=== PATIENT | female | born 1995 | race Caucasian/White ===

== ENCOUNTER 2021-12-02 00:56 | Day surgery (SDC) | payer BC, SELFPAY ==
[2021-11-18 15:49] VITALS: BMI 22.3
[2021-12-02 10:25] VITALS: BP 119/68; PULSE 70; RESP 18; TEMP 36.6; O2SAT 100
[2021-12-02] MEDS: LACTATED RINGERS 1,000 ML 150 ML IV CONT (10:37)
--- NOTE | 2021-12-02 10:45 | P.PNAN_ITS ---
Anes - Initial Pre Proc Eval Procedure: Operation Date: 12/02/21 11:30 Proposed Procedures p Esophagogastroduodenoscopy - Michael Wu MD Date/Time: 12/02/21 10:45 Surgeon: Michael Wu MD Pre Op Diagnosis: N & V, Epigastric pain Patient Data Age: 26 Gender: F Height: 1.63 m Weight: 60.6 kg Last Vital Signs Temp 36.6 C 12/02/21 10:25 Pulse 70 12/02/21 10:25 Resp 18 12/02/21 10:25 BP 119/68 12/02/21 10:25 Pulse Ox 100 12/02/21 10:25 O2 Del Method Room Air 12/02/21 10:25 Allergies Allergy/AdvReac Type Severity Reaction Status Date / Time No Known Allergies Allergy Verified 12/02/21 10:24 Home Medications Medication Instructions Recorded Confirmed Type hydroxyzine HCl 10 mg tablet 10 mg PO BID PRN anxiety #20 tabs 05/20/21 11/18/21 Rx bupropion HCl 150 mg 24 hr tablet, 150 mg PO QAM #30 tabs 10/16/21 11/18/21 Rx extended release (Wellbutrin XL) ondansetron 4 mg disintegrating 4 mg PO Q8H PRN nausea and 10/23/21 11/18/21 Rx tablet vomiting #20 tabs multivitamin with iron (Daily 1 tablet PO DAILY 10/29/21 11/18/21 History Vitamin with Iron tablet) omeprazole 40 mg capsule,delayed 40 mg PO DAILY PRN Indigestion 11/18/21 2 History release Patient hx anesthesia problems: none Family hx anesthesia problems: none Results Review: All pre-operative results and documents have been reviewed as part of the pre- operative evaluation. PENDING SALE TO [facility] Past Medical History Medical History (Updated 10/29/21 @ 14:22 by Francisca Tidwell APRN) BMI 22.0-22.9, adult BMI 23.0-23.9, adult Epigastric pressure Surgical History Surgical History (Updated 12/02/21 @ 10:46 by Amador Earl MD) S/P wisdom tooth extraction Family History Family History Father Tobacco abuse Mother GERD (gastroesophageal reflux disease) Sibling Anemia Social History Social History Smoking status: Current every day smoker Tobacco type: e-cigarettes/vaping Second hand tobacco smoke exposure: Yes Alcohol intake: former Substance use: current Substance use type: marijuana Last use: weekly Living arrangements: with family 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 Informed Consent: The patient's anesthetic plan and its attendant risks and benefits were discussed with the patient/family/POA. Questions were solicited and answers provided to the satisfaction of the patient/family/POA.
--- NOTE | 2021-12-02 10:57 | PM.HPGS ---
History of Present Illness History of Present Illness Consent: Risks, benefits, and alternatives have been discussed and questions answered. Patient agrees to proceed with procedure. Chief complaint: N & V, Epigastric pain Narrative: Zoë Membreno is a 26 year old female with cyclic vomiting, using marijuana, never had egd Review of Systems Constitutional: Constitutional: Denies headache(s) and Denies weakness Eyes: Eyes: Denies blurry vision ENT: Reports Normal hearing present, Denies headache(s) and Denies neck pain Cardiovascular: Cardiovascular: Denies chest pain and Denies dyspnea Respiratory: Respiratory: Denies dyspnea Gastrointestinal: Gastrointestinal: Reports no additional gastrointestinal complaints Genitourinary: Genitourinary: Denies dysuria Musculoskeletal: Musculoskeletal: Denies neck pain Integumentary/Breasts: Skin/Breast: Denies dry skin Neurologic: Reports Normal hearing present, Denies headache(s) and Denies weakness Psychiatric: Psychiatric: Denies anxiety Endocrine: Endocrine: Denies change in body appearance Hematologic/Lymphatic: Hematologic/Lymphatic: Denies easy bleeding Allergic/Immunologic: Allergic/Immunologic: Denies urticaria PMFSH Past Medical History Medical History (Updated 12/02/21 @ 10:58 by Michael Wu MD) BMI 22.0-22.9, adult BMI 23.0-23.9, adult Epigastric pressure Marijuana smoker Surgical History Surgical History (Updated 12/02/21 @ 10:46 by Amador Earl MD) S/P wisdom tooth extraction Family History Family History Father Tobacco abuse Mother GERD (gastroesophageal reflux disease) Sibling Anemia Social History Social History Smoking status: Current every day smoker Tobacco type: e-cigarettes/vaping Second hand tobacco smoke exposure: Yes Alcohol intake: former Substance use: current Substance use type: marijuana Last use: weekly Living arrangements: with family 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 Gender identity (if verbalized by the patient): Female Spiritual care concerns: No Meds Home Medications and Allergies Home Medications Medication Instructions Recorded Confirmed Type hydroxyzine HCl 10 mg tablet 10 mg PO BID PRN anxiety #20 tabs 05/20/21 11/18/21 Rx bupropion HCl 150 mg 24 hr tablet, 150 mg PO QAM #30 tabs 10/16/21 11/18/21 Rx extended release (Wellbutrin XL) ondansetron 4 mg disintegrating 4 mg PO Q8H PRN nausea and 10/23/21 11/18/21 Rx tablet vomiting #20 tabs multivitamin with iron (Daily 1 tablet PO DAILY 10/29/21 11/18/21 History Vitamin with Iron tablet) omeprazole 40 mg capsule,delayed 40 mg PO DAILY PRN Indigestion 11/18/21 11/18/21 History release Allergies Allergy/AdvReac Type Severity Reaction Status Date / Time No Known Allergies Allergy Verified 12/02/21 10:24 Vital Signs Vital Signs - 24 hr 12/02/21 10:25 Temperature 97.8 F Pulse Rate 70 Respiratory Rate 18 Blood Pressure 119/68 Pulse Oximetry 100 Oxygen Delivery Room Air Exam Const: General: comfortable and no acute distress HENMT: General nose exam: Normal nares present Eyes: General: appearance normal, both eyes and all related structures Neck: Neck: no JVD Resp: Auscultation: clear to auscultation bilaterally Cardio: Rate: regular rate Rhythm: regular rhythm GI: Inspection: non-distended GI Palp: Yes Soft to palpation Skin: General skin exam: normal color Neuro: General: gait normal Speech: normal speech Extrem: General: normal to inspection Psych: Mental Status: mental status grossly normal Assessment and Plan Assessment and plan (1) Nausea and vomiting: Code(s): R11.2 - Nausea with vomiting, unspecified Status: Acute Assessment and Plan: egd with bx probably related to marijuana (2) Naye
[2021-12-02 11:14] VITALS: BP 117/71; PULSE 83; RESP 20; O2SAT 100
[2021-12-02 11:24] VITALS: BP 100/60; PULSE 73; RESP 18; O2SAT 100
[2021-12-02 11:34] VITALS: BP 103/64; PULSE 75; RESP 16; O2SAT 100
== END 2021-12-02 11:48 | disposition home or self-care (01) ==
PROVIDERS: PCP Family Medicine; Visit Provider Internal Medicine Gastroenterology
PROC: 0DJ08ZZ Inspection of Upper Intestinal Tract, Via Natural or Artificial Opening Endoscopic (ICD-10-PCS; CPT 43235; principal; 2021-12-02 11:30)
DX: R11.2 Nausea with vomiting, unspecified (principal); F12.90 Cannabis use, unspecified, uncomplicated; R10.13 Epigastric pain; F17.210 Nicotine dependence, cigarettes, uncomplicated
CPT/HCPCS: 43239; 88305; J2704; J7120

== ENCOUNTER 2024-07-31 19:34 | Emergency (ER) | payer BC, SELFPAY ==
--- OUTSIDE RECORDS SUMMARY | 2024-07-31 19:36 | XMS_ITS | Clinical Summary ---
Author Organization [facility] Address [address] [place] [address] Care Team Providers Care Unishear Operator Name Role Phone Hunter Whelan MD Primary Care Provider [phone] Source Comments [facility],non-owned Affiliates and Associated Physician Practices is amultiple site organization consisting of ambulatory clinics and hospital sitesin [place], [place], [place] and [place]. This disclosure is being madepursuant to the Care Everywhere program and may not contain all information available regarding this patient. Last updated 17.[facility] Allergies No known active allergies Social History Tobacco Use Types Packs/Day Years Used Date Smoking Tobacco: Never Assessed Comments No Sex and Gender Information Value Date Recorded Sex Assigned at Not on file Legal Sex Female 11:27 AM CDT Gender Identity Not on file Sexual Orientation Not on file Plan of Treatment Health Maintenance Due Date Last Done Comments PAP SMEAR 1997 HIV SCREENING 01/21/2012 HEPATITIS C SCREENING 01/16/2015 DTAP/TDAP/TD VACCINES (1 - Tdap) 01/21/2016 HEPATITIS B VACCINE (1 of 3 - 19+ 3-dose series) 01/21/2016 COVID-19 VACCINE ( - 2023-2 5 season) 2023 DEPRESSION SCREENING 03/29/2024 INFLUENZA VACCINE (Season Ended) 2024 ZOSTER VACCINE (1 of 2) 2047 HIB VACCINE Aged Out No longer eligi ble based on patient's age to complete this topic HPV VACCINE Aged Out No longer eligi ble based on patient's age to complete this topic MENINGOCOCCAL (Group B) VACC INE SHARED DECISION-MAKING Aged Out No longer eligibl e based on patient's age to complete this topic MENINGOCOCCAL GROUPS A/C/Y/W VACCINE Aged Out No longer eligible b ased on patient's age to complete this topic PNEUMOCOCCAL VACCINE Aged Out No long er eligible based on patient's age to complete this topic Insurance ANTH Care Teams Unishear Operator Relationship Specialty Start Date End Date Hunter Whelan MD [address] [place] [address] PCP - General 12/04/21
[2024-07-31 19:37] VITALS: BP 142/94; PULSE 101; RESP 18; TEMP 36.3; O2SAT 99
--- OUTSIDE RECORDS SUMMARY | 2024-07-31 19:37 | XMS_ITS | Data Portability ---
Author Organization [address] [employer] , [facility] Address [address] [place] [address] Care Team Providers Care Household Chores Name Role Phone [facility] Patient Experience Coordinator Assessment No assessment recorded. Plan of Treatment Reminders Order Date Submit Date Provider Last Modified By Organization Details Last Modified Time Details Appointments None record ed. Lab pregna ncy test, urine 2022 023 [facility], [address] [place], [address], 3 15:50:50 pap, LB 2022 023 [facility], [address] [place], [address], 3 17:27:40 HPV E6+E7 mRNA, qualit ative PCR, cervix 2022 023 [facility], [address] [place] [address], [address], 3 15:46:48 CBC w/ auto diff 2022 023 [facility], [address] [place], [address], 3 10:30:01 CMP, serum or plasma 2022 023 [facility], [address] [place], [address], 3 10:30:00 uric acid, serum or plasma 2022 023 [facility], [address] [facility], [place], [address], 3 10:30:00 Referral None record ed. Procedures None record ed. Surgeries None record ed. Imaging US, transv aginal 2022 023 [email or web address] Not available 17:21:16 Medication Orders ParaGa rd T 380A 380 square mm intrau terine device 2022 023 [email or web address] Not available 11:36:50 Patient TargetsNo targets recorded. Patient Instructions Encounter Date Encounter Id Patient Instructions Last Modified By Organization Details Last Modified Time 10/22/2022 [id number] blood pressure check* [email or web address] Not available 10/26/2022 14:05:26 11/12/2022 [id number] edinburgh depression scale* kbritsch Not available 11/12/2022 16:39:51 12/14/2022 [id number] edinburgh depression scale* [email or web address] Not available 12/14/2022 15:43:50 Care at Home With Your Baby: Care Instructions Not available 12/14/2022 15:31:28 control after counseling Not available 12/14/2022 15:31:29 03/19/2023 [id number] intrauterine device (IUD) insertion: care instructions [email or web address] Not available 03/19/2023 15:50:48 Reason for Referral None Reported. Results Created Date Observation Date Name Description Value Unit Range Abnormal Flag Note LastModifiedBy Organization Detail LastModifiedTime 09/25/1909/26/2022 STREP TOCOC CUS, GROUP B CULTU RE streptococcu s, group B culture SEE NOTE abnormal STREP TOCOC CUS, GROUP B CULTU RE Micro Numbe r: [id number] Test Statu s: Final Speci men Sourc e: Vagin al/an orect al Speci men Quali ty: Adequ ate Resul t: Group B Strep tococ cus isola radha Beta- hemol ytic strep tococ ci are predi ctabl y susce ptibl e to Penic illin and other beta- lacta ms. Susce ptibi lity testi ng not routi ernie perfo rmed. Pleas e conta ct the labor atory withi n 3 days if susce ptibi lity testi ng is enoc ed. Note per CDC guide lines optim al recov abby is achie prema by swabb ing both the lower vagin a and rectu m (thro ugh the anal sphin cter) . Not Available [address] [place], [address], 09/26/2022 10:02:31 10/23/19 23 10/23/2022 URIC ACID uric acid 5.9 mg/dL 2.5-7. 0 normal Thera peuti c targe t for gout patie nts: <6.0 mg/dL Not Available [address] [place], [address], 10/23/2022 10:30:00 10/23/19 23 10/23/2022 COMPR EHENS KHADAR METAB OLIC PANEL glucose 85 mg/dL 65-99 normal Fasti ng refer ence inter anjelica Not Available [address] [place], [address], 10/23/2022 10:30:00 10/23/19 23 10/23/2022 COMPR EHENS KHADAR METAB OLIC PANEL urea nitrogen (BUN) 14 mg/dL 7-25 normal Not Available [address], [address], 10/23/2022 10:30:00 10/23/19 23 10/23/2022 COMPR EHENS KHADAR METAB OLIC PANEL creatinine 0.55 mg/dL 0.50-0 .96 normal Not Available [facility] [address], [address], 10/23/2022 10:30:00 10/23/19 23 10/23/2022 COMPR EHENS KHADAR METAB OLIC PANEL eGFR 130 mL/mi n/1.7 3m2 > or = 60 normal The eGFR is based on the CKD-E PI 2020 equat ion. To calcu late the new eGFR from a previ ous Creat inine or Cysta tin C resul t, go to https :[email or web address] [email or web address].o ginger/pr ofess ional s/ kdoqi /gfr% 5Fcal culat or Not Available [address] [address] [place], [address], 10/23/2022 10:30:00 10/23/19 23 10/23/2022 COMPR EHENS KHADAR METAB OLIC PANEL BUN/creatini ne ratio NOT APPLIC ABLE (calc ) 6-22 Not Available [address], [address], 10/23/2022 10:30:00 10/23/19 23 10/23/2022 COMPR EHENS KHADAR METAB OLIC PANEL sodium 139 mmol/ L 135-14 6 normal Not Available [address] [place], [address], 10/23/2022 10:30:00 10/23/19 23 10/23/2022 COMPR EHENS KHADAR METAB OLIC PANEL potassium 4.2 mmol/ L 3.5-5. 3 normal Not Available [address], [address], 10/23/2022 10:30:00 10/23/19 23 10/23/2022 COMPR EHENS KHADAR METAB OLIC PANEL chloride 104 mmol/ L 98-110 normal Not Available [facility] [address], [address], 10/23/2022 10:30:00 10/23/19 23 10/23/2022 COMPR EHENS KHADAR METAB OLIC PANEL carbon dioxide 23 mmol/ L 20-32 normal Not Available [facility] [address] [address] [place], [address], 10/23/2022 10:30:00 10/23/19 23 10/23/2022 COMPR EHENS KHADAR METAB OLIC PANEL calcium 9.9 mg/dL 8.6-10 .2 normal Not Available [address], [address], 10/23/2022 10:30:00 10/23/19 23 10/23/2022 COMPR EHENS KHADAR METAB OLIC PANEL protein, total 6.9 g/dL 6.1-8. 1 normal Not Available [address], [address], 10/23/2022 10:30:00 10/23/19 23 10/23/2022 COMPR EHENS KHADAR METAB OLIC PANEL albumin 4.2 g/dL 3.6-5. 1 normal Not Available [address], [address], 10/23/2022 10:30:00 10/23/19 23 10/23/2022 COMPR EHENS KHADAR METAB OLIC PANEL globulin 2.7 g/dL_ (calc ) 1.9-3. 7 normal Not Available [address], [address], 10/23/2022 10:30:00 10/23/19 23 10/23/2022 COMPR EHENS KHADAR METAB OLIC PANEL albumin/glob ulin ratio 1.6 (calc ) 1.0-2. 5 normal Not Available [address], [address], 10/23/2022 10:30:00 10/23/19 23 10/23/2022 COMPR EHENS KHADAR METAB OLIC PANEL bilirubin, total 0.4 mg/dL 0.2-1. 2 normal Not Available [address], [address], 10/23/2022 10:30:00 10/23/19 23 10/23/2022 COMPR EHENS KHADAR METAB OLIC PANEL alkaline phosphatase 110 U/L 31-125 normal Not Available [address], [address], 10/23/2022 10:30:00 10/23/19 23 10/23/2022 COMPR EHENS KHADAR METAB OLIC PANEL AST 26 U/L 10-30 normal Not Available [address], [address], 10/23/2022 10:30:00 10/23/19 23 10/23/2022 COMPR EHENS KHADAR METAB OLIC PANEL ALT 40 U/L 6-29 high Not Available [address], [address], 10/23/2022 10:30:00 10/23/19 23 10/23/2022 CBC (INCL UDES DIFF/ PLT) white blood cell count 6.2 thous and/u L 3.8-10 .8 normal Not Available [address], [address], 10/23/2022 10:30:01 10/23/19 23 10/23/2022 CBC (INCL UDES DIFF/ PLT) red blood cell count 4.88 noreen on/uL 3.80-5 .10 normal Not Available [address], [address], 10/23/2022 10:30:01 10/23/19 23 10/23/2022 CBC (INCL UDES DIFF/ PLT) hemoglobin 13.7 g/dL 11.7-1 5.5 normal Not Available [address], [address], 10/23/2022 10:30:01 10/23/19 23 10/23/2022 CBC (INCL UDES DIFF/ PLT) hematocrit 42.4 % 35.0-4 5.0 normal Not Available [address], [address], 10/23/2022 10:30:01 10/23/19 23 10/23/2022 CBC (INCL UDES DIFF/ PLT) MCV 86.9 fL 80.0-1 00.0 normal Not Available [address], [address], 10/23/2022 10:30:01 10/23/19 23 10/23/2022 CBC (INCL UDES DIFF/ PLT) MCH 28.1 pg 27.0-3 3.0 normal Not Available [facility] [address], [address], 10/23/2022 10:30:01 10/23/19 23 10/23/2022 CBC (INCL UDES DIFF/ PLT) MCHC 32.3 g/dL 32.0-3 6.0 normal Not Available [address], [address], 10/23/2022 10:30:01 10/23/19 23 10/23/2022 CBC (INCL UDES DIFF/ PLT) RDW 15.7 % 11.0-1 5.0 high Not Available [address], [address], 10/23/2022 10:30:01 10/23/19 23 10/23/2022 CBC (INCL UDES DIFF/ PLT) platelet count 275 thous and/u L 140-40 0 normal Not Available [address], [address], 10/23/2022 10:30:01 10/23/19 23 10/23/2022 CBC (INCL UDES DIFF/ PLT) MPV 10.0 fL 7.5-12 .5 normal Not Available [address], [address], 10/23/2022 10:30:01 10/23/19 23 10/23/2022 CBC (INCL UDES DIFF/ PLT) absolute neutrophils 3832 cells /uL 1500-7 800 normal Not Available [address], [address], 10/23/2022 10:30:01 10/23/19 23 10/23/2022 CBC (INCL UDES DIFF/ PLT) absolute lymphocytes 1432 cells /uL 850-39 00 normal Not Available [address], [address], 10/23/2022 10:30:01 10/23/19 23 10/23/2022 CBC (INCL UDES DIFF/ PLT) absolute monocytes 484 cells /uL 200-95 0 normal Not Available [address], [address], 10/23/2022 10:30:01 10/23/19 23 10/23/2022 CBC (INCL UDES DIFF/ PLT) absolute eosinophils 403 cells /uL 15-500 normal Not Available [address], [address], 10/23/2022 10:30:01 10/23/19 23 10/23/2022 CBC (INCL UDES DIFF/ PLT) absolute basophils 50 cells /uL 0-200 normal Not Available [address], [address], 10/23/2022 10:30:01 10/23/19 23 10/23/2022 CBC (INCL UDES DIFF/ PLT) neutrophils 61.8 % normal Not Available [address], [address], 10/23/2022 10:30:01 10/23/19 23 10/23/2022 CBC (INCL UDES DIFF/ PLT) lymphocytes 23.1 % normal Not Available [address], [address], 10/23/2022 10:30:01 10/23/19 23 10/23/2022 CBC (INCL UDES DIFF/ PLT) monocytes 7.8 % normal Not Available [address], [address], 10/23/2022 10:30:01 10/23/19 23 10/23/2022 CBC (INCL UDES DIFF/ PLT) eosinophils 6.5 % normal Not Available [address], [address], 10/23/2022 10:30:01 10/23/19 23 10/23/2022 CBC (INCL UDES DIFF/ PLT) basophils 0.8 % normal Not Available [address], [address], 10/23/2022 10:30:01 12/15/19 23 12/15/2022 HPV HIGH RISK HPV high risk Negati ve negati ve normal The HPV High Risk assay is inten ded for use as co-te sting with cytol ogy and not as a subst itute for regul ar cervi aparna cytol ogy scree [place]. This assay is not inten ded for use as a scree mansoor devic e for women under age 30 with samantha l cervi aparna cytol ogy. Not Available [address], [address], 12/15/2022 15:46:48 12/15/19 23 12/16/2022 THINP REP TIS PAP clinical information: normal None given Not Available [address], [address], 12/16/2022 17:27:40 12/15/19 23 12/16/2022 THINP REP TIS PAP LMP: normal NONE GIVEN Not Available [address], [address], 12/16/2022 17:27:40 12/15/19 23 12/16/2022 THINP REP TIS PAP prev. Pap: normal NONE GIVEN Not Available [address], [place], [address], 12/16/2022 17:27:40 12/15/19 23 12/16/2022 THINP REP TIS PAP prev. BX: normal NONE GIVEN Not Available [address], [place], [address], 12/16/2022 17:27:40 12/15/19 23 12/16/2022 THINP REP TIS PAP source: normal Cervi x Not Available [address], [place], [address], 12/16/2022 17:27:40 12/15/1912/16/2022 THINP REP TIS PAP statement of adequacy: Speci men proce ssed and exami teja, but unsat isfac tory for evalu ation due to an insuf ficie nt numbe r of squam ous cells . Not Available [address], [place], [address], 12/16/2022 17:27:40 12/15/1912/16/2022 THINP REP TIS PAP interpretati on/result: Cytol ogy Resul ts: Unabl e to provi de inter preta tion due to unsat isfac tory speci men adequ acy. Not Available [address], [place], [address], 12/16/2022 17:27:40 12/15/19 23 12/16/2022 THINP REP TIS PAP comment: normal This Pap test has been evalu ated with compu ter ryan radha techn ology . Micro scopi c featu res sugge stive of lubri cant. Lubri cant kat es may inter fere with slide prepa ratio n; their use is not recom susanna d. Not Available [address] , [place], [address], 12/16/2022 17:27:40 12/15/19 23 12/16/2022 THINP REP TIS PAP cytotechnolo gist: normal WILLARD, CT( CP) CT [place] locat ion: [address] [place] [address] Not Available [facility] [address] [place], [address], 12/16/2022 17:27:40 12/15/19 23 12/16/2022 THINP REP TIS PAP review cytotechnolo gist: normal ABC, CT( CP) CT scree [place] locat ion: [facility] [address] [place] [address] Not Available [facility] [address] [place], [address], 12/16/2022 17:27:40 12/15/19 23 12/16/2022 THINP REP TIS PAP comment EXPLA NATOR Y NOTE: The Pap is a scree mansoor test for cervi aparna cance r. It is not a diagn ostic test and is subje ct to false negat khadar and false posit khadar resul ts. It is most relia ble when a satis facto ry sampl e, regul sugey obtai teja, is submi tted with relev ant clini aparna findi ngs and histo ry, and when the Pap resul t is evalu ated along with histo elida and curre nt clini aparna infor matio n. Not Available [facility] [address], [place], [address], 12/16/2022 17:27:40 03/19/20 23 03/19/2023 pregn liv test, urine HCG negati ve Not Available [facility] [address] [facility] [place], [address], 03/18/2023 17:29:12 03/19/20 23 03/19/2023 US, trans vagin al No observ ation record ed. [email or web address] [facility] [address], [place], [address], 03/22/2023 16:38:09 Result Notes None recorded. Problems Name Problem SNOMED Code Status Onset Date Resolution Date Notes Provider Name and Address Organization Details Recorded Time Gestatio n period, 24 weeks [id number] Completed 201810/15/2019 24 weeks gestatio n of pregnanc y; Progress : Stable Added By: Kelton Benitez Add to Current Problems : NO ProblemS tatus: Resolve Not Available [facility] 2 22:08:27 Gestatio n period, 13 weeks [id number] Completed 201810/15/2019 13 weeks gestatio n of pregnanc y; Progress : Stable Added By: Kirti Patterson Add to Current Problems : NO ProblemS tatus: Resolve Not Available [facility] 2 21:06:39 Gestatio n period, 17 weeks [id number] Completed 201810/15/2019 17 weeks gestatio n of pregnanc y; Progress : Stable Added By: Cara Corado Add to Current Problems : NO ProblemS tatus: Resolve Not Available [facility] 2 21:06:38 Uterine size for dates discrepa ncy Completed 201910/15/2019 Uterine size-lou e discrepa ncy, third trimeste r; Progress : Stable Added By: Charlene Griffin Add to Current Problems : NO ProblemS tatus: Resolve Not Available [facility] 2 22:08:27 Gestatio n period, 9 weeks [id number] Completed 201810/15/2019 9 weeks gestatio n of pregnanc y; Progress : Stable Added By: Kelton Benitez Add to Current Problems : NO ProblemS tatus: Resolve Not Available [facility] 2 21:06:39 Uterine size for dates discrepa ncy Completed 201810/15/2019 Uterine size-lou e discrepa ncy, second trimeste r; Progress : Stable Added By: Jessica Mloina Add to Current Problems : NO ProblemS tatus: Resolve Not Available [facility] 2 21:06:38 Procedur e related to breastfe eding Completed 201910/15/2019 Encounte r for care and examinat ion of lactatin g mother; Progress : Stable Added By: Sondra Orellana Add to Current Problems : NO ProblemS tatus: Resolve Not Available [facility] 2 21:06:40 Maternal hyperten chuck [id number] Completed 201910/15/2019 Unspecif ied maternal hyperten chuck, complica ting the puerperi um; Progress : Stable Added By: So Lai Add to Current Problems : NO ProblemS tatus: Resolve Not Available [facility] 2 21:06:38 Normal pregnanc y in multigra jared [id number] 4106 Completed 201910/15/2019 Encounte r for supervis ion of other normal pregnanc y, first trimeste r; Progress : Stable Added By: Kirti Patterson Add to Current Problems : NO ProblemS tatus: Resolve; Start Date : 12/15/19 Encou nter for supervis ion of other normal pregnanc y, second trimeste r; Progress : Stable Added By: Kelton Benitez Add to Current Problems : NO ProblemS tatus: Resolve; Start Date : 02/04/20 Encou nter for supervis ion of other normal pregnanc y, third trimeste r; Progress : Stable Added By: So Lai Add to Current Problems : NO ProblemS tatus: Resolve Not Available [facility] 2 22:08:27 Gestatio n period, 30 weeks [id number] Completed 201910/15/2019 30 weeks gestatio n of pregnanc y; Progress : Stable Added By: Mina Avalos Add to Current Problems : NO ProblemS tatus: Resolve Not Available [facility] 2 21:06:39 Lochia finding Completed 201910/15/2019 Encounte r for routine postpart um follow-u p; Progress : Stable Added By: Sondra Orellana Add to Current Problems : NO ProblemS tatus: Resolve Not Available [facility] 2 22:08:27 Gestatio n period, 36 weeks 64587369 Completed 201910/15/2019 36 weeks gestatio n of pregnanc y; Progress : Stable Added By: So Lai Add to Current Problems : NO ProblemS tatus: Resolve Not Available [facility] 2 22:08:26 Gestatio n period, 34 weeks 43832983 Completed 201910/15/2019 34 weeks gestatio n of pregnanc y; Progress : Stable Added By: So Lai Add to Current Problems : NO ProblemS tatus: Resolve Not Available [facility] 2 22:08:28 Gestatio n period, 37 weeks 40960709 Completed 201910/15/2019 37 weeks gestatio n of pregnanc y; Progress : Stable Added By: So Lai Add to Current Problems : NO ProblemS tatus: Resolve Not Available [facility] 2 22:08:28 Gestatio n period, 28 weeks 57177654 Completed 201910/15/2019 28 weeks gestatio n of pregnanc y; Progress : Stable Added By: So Lai Add to Current Problems : NO ProblemS tatus: Resolve Not Available [facility] 2 22:08:26 Gestatio n period, 20 weeks 06082519 Completed 201810/15/2019 20 weeks gestatio n of pregnanc y; Progress : Stable Added By: Re Christianson Add to Current Problems : NO ProblemS tatus: Resolve Not Available [facility] 2 21:06:38 Gestatio n period, 32 weeks 6732421 Completed 201910/15/2019 32 weeks gestatio n of pregnanc y; Progress : Stable Added By: Charlene Griffin Add to Current Problems : NO ProblemS tatus: Resolve Not Available [facility] 2 22:08:26 Obstetri c high vaginal lacerati on [id number] Completed 201910/15/2019 Obstetri c high vaginal lacerati on alone; Progress : Stable Added By: So Lai Add to Current Problems : NO ProblemS tatus: Resolve Not Available [facility] 2 21:06:40 Antenata l screenin g for malforma tion Completed 201810/15/2019 Encounte r for antenata l screenin g for malforma tions; Progress : Stable Added By: Re Christianson Add to Current Problems : NO ProblemS tatus: Resolve Not Available [facility] 2 21:06:38 Antenata l screenin g Completed 201910/15/2019 Encounte r for antenata l screenin g for Streptoc occus B; Progress : Stable Added By: So Lai Add to Current Problems : NO ProblemS tatus: Resolve Encounte r for other specifie d antenata l screenin g; Progress : Stable Added By: So Lai Add to Current Problems : NO ProblemS tatus: Resolve; Start Date : 12/15/19 Not Available [facility] 2 22:08:26 Depressi on screenin g Completed 201910/15/2019 Encounte r for screenin g for maternal depressi on; Progress : Stable Added By: Sondra Orellana Add to Current Problems : NO ProblemS tatus: Resolve Not Available [facility] 2 22:08:28 Pregnanc y [id number] Completed 202112/14/2022 Lis Fady null, [employer] [facility] 3 15:08:13 Normal pregnanc y in multigra jared [id number] 4106 Completed Lis Shrestha null, [email or web address] 3 15:08:11 Past pregnanc y history of pre-ecla mpsia [id number] 9100 Completed Lis Shrestha null, [email or web address] 3 15:08:11 growth restrict ion 87588409 Completed size is 9th% & may be trending toward IUGR WINSTON: within normal limits UA Doppler: normal EDBF Posterio r placenta with marginal cord insertio n 5/6 US: 27%doris Shrestha null, [address] [facility] 3 15:08:11 Marginal insertio n of umbilica l cord 81098879 Completed Lis Fady null, [email or web address] 3 15:08:11 Iron deficien cy anemia 90883987 Completed recheck CBC at 34 weeks Lis Shrestha [facility], [facility] [employer] [facility] 3 15:08:11 Problem Notes None recorded. Procedures Surgical History Date Name Laterality Status Provider Name and Address Organization Details Recorded Time 3 IUD Insertion completed So Lai CNM [address] [place], [address], [facility] 03/19/2023 16:28:59 3 Date of Last Pap Smear completed Lis Shrestha [facility] 12/14/2022 15:45:24 2 Mirena IUD Removal completed NUPUR Valdivia [address] [place], [address], [facility] 01/26/2022 15:32:05 Imaging Results Imaging Date Name Status LastModified by Organization Details LastModified Time 03/19/2023 US, transvaginal completed Jania [address], [place], [address], 03/22/2023 16:38:09 Procedure Notes None recorded. Medical Equipment None Reported. Allergies No known drug allergies Medications Name Sig Start Date Stop Date Status Note LastModified by Organization Details LastModified Time Colace 100 mg capsule take 1 capsule (100 mg) by oral route 2 times per day 10/12 completed Colace 100 mg oral capsule RxNorm: [id number] Allow Substitu tion: False Refill Denied: No Refill DateOccu rred: 07/03/19 20 Edited by: Clare Severino ) on 10/13/19 Stopped by: Clare Severino ) on 10/13/19 Not Available Not Available Not Available ibuprofen 800 mg tablet 11/12 completed Not Available Not Available Not Available ondansetr on HCl 4 mg tablet TAKE 2 TABLETS BY MOUTH TWICE DAILY 07/30 completed Not Available Not Available Not Available Diflucan 150 mg tablet take 1 tablet (150 mg) by oral route once, and then repeat in 72 hours. 06/08/ 2021 10/31 /2022 completed Diflucan 150 mg oral tablet RxNorm: [id number] Allow Substitu tion: True Refill Denied: No Edited by: Jessica Mcginnis) on 09/04/19 Stopped by: Jessica Mcginnis) on Not Available Not Available Not Available naproxen 125 mg/5 mL oral suspensio n take 10 millilit ers (250 mg) by oral route every 6 hours as needed with food 10/12 completed naproxen 125 mg/5 mL oral Suspensi on RxNorm: [id number] Allow Substitu tion: False Refill Denied: No Refill DateOccu rred: 07/03/19 Edited by: Clare Severino ) on 10/13/19 Stopped by: Clare Severino ) on 10/13/19 Not Available Not Available Not Available omeprazol e 40 mg capsule,d elayed release TAKE 1 CAPSULE BY MOUTH DAILY 01/26 completed Not Available Not Available Not Available aspirin 81 mg tablet,de layed release TAKE 2 TABLETS BY MOUTH DAILY 11/12 completed Not Available Not Available Not Available ondansetr on 8 mg disintegr ating tablet DISSOLVE 1 TABLET ON THE TONGUE EVERY 8 HOURS NEEDED FOR NAUSEA OR VOMITING 01/26 completed Not Available Not Available Not Available Metrogel Vaginal 0.75 % (37.5 mg/5 gram) insert 1 applicat or full (37.5 mg) by vaginal route at bedtime in the evening 01/26 completed Metrogel VaginaL 0.75 % Vaginal Gel RxNorm: [id number] Allow Substitu tion: True Refill Denied: No Edited by: Jessica Mcginnis) on 09/04/19 Stopped by: Jessica Mcginnis) on Not Available Not Available Not Available famotidin e 20 mg tablet TAKE 1 TABLET BY MOUTH TWICE DAILY 07/30 completed Not Available Not Available Not Available nystatin- triamcino lone 100,000 unit/g-0. 1 % topical cream apply to external tissues twice per day X 7 days. May split into 2 creams if not covered as combinat ion therapy. 01/262 completed nystatin -triamci nolone 100,000- 0.1 unit/g-% Topical Cream RxNorm: [id number] Allow Substitu tion: True Refill Denied: No Edited by: Jessica Mcginnis) on 09/10/19 Stopped by: Jessica Mcginnis) on Not Available Not Available Not Available nifedipin e ER 60 mg tablet,ex tended release active Not Available Not Available Not Available hydroxyzi ne HCl 10 mg tablet TAKE 1 TABLET BY MOUTH TWICE DAILY NEEDED FOR ANXIETY 08/27 completed Not Available Not Available Not Available ondansetr on 4 mg disintegr ating tablet DISSOLVE 1 TABLET ON THE TONGUE EVERY 8 HOURS NEEDED FOR NAUSEA OR VOMITING 01/26 completed Not Available Not Available Not Available ParaGard T 380A 380 square mm intrauter ine device Take by intraute rine route. 2022 active Document procedur e details in the PE - Procedur e SectionD ocument Lot # Exp Date and click Administ ered in this A/P order Not Available Not Available Not Available metoclopr amide 10 mg tablet TAKE 1 TABLET BY MOUTH EVERY 6 HOURS 07/30 completed Not Available Not Available Not Available Bactrim DS 800 mg-160 mg tablet take 1 tablet by oral route every 12 hours for 3 days. 01/26 completed Bactrim DS 800-160 mg oral tablet RxNorm: 475247 Allow Substitu tion: True Refill Denied: No Edited by: Jessica Mcginnis) on 09/10/19 Stopped by: Jessica Mcginnis) on Not Available Not Available Not Available escitalop ashly 10 mg tablet TAKE 1 TABLET BY MOUTH DAILY 01/26 completed Not Available Not Available Not Available bupropion HCl XL 150 mg 24 hr tablet, extended release TAKE 1 TABLET BY MOUTH EVERY MORNING active Not Available Not Available No t Available Fish Oil 07/02 completed Fish Oil Allow Substitu tion: False Refill Denied: No Refill DateOccu rred: 12/15/19 19 Edited by: Alannah Mejias ) on 07/03/19 20 Stopped by: Trupti Mejiashan ) on 07/03/19 Not Available Not Available Not Available folic acid 07/02 completed folic acid RxNorm: 5809575 Allow Substitu tion: False Refill Denied: No Refill DateOccu rred: 12/15/19 19 Edited by: Alannah Mejias ) on 07/03/19 Stopped by: lucas(Alannah Zuniga ) on 07/03/19 Not Available Not Available Not Available nifedipin e 08/26 completed NIFEdipi ne RxNorm: 101493 Allow Substitu tion: False Refill Denied: No Refill DateOccu rred: 07/03/19 Edited by: Ree Yen ) on 08/27/19 Stopped by: ruben( Ree Méndez ) on 08/27/19 Not Available Not Available Not Available FeroSul 325 mg (65 mg iron) tablet TAKE 1 TABLET BY MOUTH TWICE DAILY active Not Available Not Available No t Available 28 mg iron-800 mcg tablet Take 1 tablet every day by oral route at bedtime. 11/12 completed Not Available Not Available Not Available Vitals Date Recorded Body height Body mass index (BMI) Body temperature Systolic blood pressure Diastolic blood pressure Provider Name and Address Organization Details Last Updated DateTime 10/15/2022 160.02 cm 34.6 kg/m2 97.9 [degF] 132 mm[Hg] 90 mm[Hg] Jes Guzmán [place] [employer] [facility] IV 12:52:25 Date Recorded Body weight Provider Name an d Address Organization Details Last Updated DateTime 10/15/2022 51928.212560 g So Lai, [facility] [address] [facility], [place], [address], [place] [employer] [facility] 10/15/2022 13:38:35 Date Recorded Systolic blood pressure Diastolic blood pressure Provider Name and Address Organization Details Last Updated DateTime 10/15/2022 134 mm[Hg] 96 mm[Hg] Mali Elizalde [place] [email or web address] [facility] 10/15/2022 13:12:56 Date Recorded Body height Body mass index (BMI) Body temperature Systolic blood pressure Diastolic blood pressure Provider Name and Address Organization Details Last Updated DateTime 10/22/2022 160.02 cm 31 kg/m2 97.5 [degF] 120 mm[Hg] 78 mm[Hg] Jes Melendrezblas [place] [employer] [facility] 3 12:28:31 Date Recorded Body weight Provider Name an d Address Organization Details Last Updated DateTime 10/22/2022 54072.17887 g So Lai, [facility] [address] [place], [address], [place] [employer] [facility] 11/04/2022 15:08:24 Date Recorded Body height Body mass index (BMI) Body weight Body temperature Systolic blood pressure Diastolic blood pressure Provider Name and Address Organization Details Last Updated DateTime 3 160.02 cm 30 kg/m2 78620.2 25132 g 97.8 [degF] 124 mm[Hg] 80 mm[Hg] Kelly Anthony [place] [employer] [facility] 3 14:16:19 Date Recorded Body height Body temperature Body mass index (BMI) Body weight Systolic blood pressure Diastolic blood pressure Provider Name and Address Organization Details Last Updated DateTime 3 160.02 cm 97 [degF] 30.3 kg/m2 08011.0 1 g 122 mm[Hg] 80 mm[Hg] Lis ChavesFady [place] [email or web address] [facility] 3 15:17:28 Date Recorded Body height Systolic blood pressure Diastolic blood pressure Provider Name and Address Organization Details Last Updated DateTime 03/19/2023 160.02 cm 120 mm[Hg] 72 mm[Hg] Miryam Earl [place] [email or web address] [facility] 03/19/2023 15:40:10 Social History Question Answer Notes LastModified by Organizat ion Details LastModified Time Tobacco Smoking Status Current Every Day Smoker vape, weed [employer], [employer] IV 01/26/2022 15:05:33 What Is Your Level Of Alcohol Consumption? None Information not available 05/28/2022 If You Are , What Was Your Level Of Alcohol Consumption Prior To ? None Information not available 05/28/2022 Are You Blind Or Do You Have Difficulty Seeing? No Information not available 03/12/2022 Are You Currently Employed? No [email or web address] Information not available 08/13/2022 Are You Deaf Or Do You Have Serious Difficulty Hearing? No Information not available 03/12/2022 What Type Of Diet Are You Following? REGULAR Information not available 03/12/2022 What Is The Highest Grade Or Level Of School You Have Completed Or The Highest Degree You Have Received? [id number] Information not available 08/13/2022 How Many Children Do You Have? 2 [email or web address] Information not available 12/14/2022 What Is Your Relationship Status? [email or web address] Information not available 08/13/2022 Are You Sexually Active? Yes Information not available 01/26/2022 At What Age Did You Start Smoking Tobacco? 21 Information not available 01/26/2022 Do You Use Any Illicit Or Recreational Drugs? No Information not available 03/12/2022 How Many Years Have You Smoked Tobacco? 3 Information not available 01/26/2022 Do You Or Have You Ever Used Any Other Forms Of Tobacco Or Nicotine? No Information not available 05/28/2022 Sex: Female Functional Status Question Answer Note LastModified by Organization D etails LastModified Time What is your exercise level? None Information not available 03/12/2022 Mental Status None recorded. Family History Relationship Description Onset Age of this Age Resolved Age Notes LastModified by Organization Details LastModified Time Father No current problems or disability Not available 01/26 15:04:44 Mother No current problems or disability Not available 01/26 15:04:44 Medical History Condition Response High Blood Pressure N Colon Cancer N Cytomegalovirus N Hyperthyroidism N MRSA N Blood Transfusion N Herpes (HSV) N Breast Cancer N Lung Cancer N Depression N Hypothyroidism N Incontinence N Panic Attacks N Neurological Disorder N Deep Vein Thrombosis N Anxiety Disorder Y Autoimmune disease N Arthritis N Shingles N Tuberculosis/Positive PPD N Polycystic Ovarian Syndrome N Cervical Cancer N Chlamydia N Hematuria N Varicosities N Crohn's Disease N Seasonal allergies N COPD/Emphysema N Endometriosis N HPV/Genital Warts N IBS (Irritable Bowel Syndrome) N History of Abnormal Pap N High Cholesterol N Liver Disease N Fibromyalgia N Kidney Infection N Ulcer N Kidney Disease N HIV N Gallbladder disease N Sickle Cell Disease/Trait N Von Willebrand disease N ADD/ADHD Y Eating Disorder N Diabetes Mellitus (non-insulin dependent ) N Anemia N Ovarian Problems N Multiple Sclerosis N Gonorrhea N Frequent Urinary Tract infections N Osteopenia N GERD (reflux) N Diabetes (insulin dependent) N Seizures/Epilepsy N Fibroids N Asthma N Heart Attack N Lupus N Endometrial Cancer N Rubella N Blood Clotting Disorder N Bipolar Disorder N Diabetes Mellitus (during ) N Ulcerative Colitis N Hepatitis N Heart Disease N Pulmonary Embolism N RPR N Chicken Pox N Osteoporosis N Gynecological History Statement/Question Response Flow Moderate Date of last HPV Date of LMP 03/12/2023 HPV Vaccine N Duration of Flow (days) 5 Most Recent Mammogram Current Control Method None Age at Menarche 16 Date of Last Colonoscopy Most Recent Bone Density Frequency of Cycle (Q days) 28 Date of Last Pap Smear 12/14/2022 Obstetrics History GPAL:G 2 P 2 0 0 2 Type Value Full Term 2 Living 2 Total 2 Past Encounters Encounter ID Performer Location Encounter Start Date Encounter Closed Date Diagnosis/Indication Diagnosis SNOMED-CT Code Diagnosis ICD10 Code Diagnosis Note [id number] NUPUR [place] [place] [address] 01/26/2022 14:56:56 01/26/2022 16:00:40 Removal of intrauterine device 62248885 Z30.432 IUD removed without difficulty and pt tolerated procedure well. Pt educated on OTC NSAID therapy for 24-48 hours PRN following procedure. Bleeding profile reviewed. Plan to F/U for WWE or PRN. Family jose nning education 926942054 Z31.69 Pt educated on timing intercours e, taking PNV daily, and to get her influenza and COVID vaccines if appropriat e. Pt to F/U in office when she has + HPT. Pt states understand ing of POC. [id number] Judi Dennis CNM [facility] [address] [place] [address] 03/12/2022 14:30:48 03/18/2022 14:13:27 detection examination 64286983 Z32.01 Z32.00 Routine an tenatal care 411141599 Z34.91 Small frequent meals, zofran prn, when to present to [facility] for evaluation [id number] Praveen Torrez DO [address] [address] 03/31/2022 13:41:08 03/31/2022 14:18:21 Routine care 813865777 Z34.01 Z34.81 O09.511 O09.521 Gestation period, 11 weeks 26952509 Z3A.11 [id number] JORDAN Mahoney[address] [address] 04/30/2022 13:59:37 04/30/2022 14:31:02 Normal in multigravida 6145131403 76973 Z34.82 Gestation period, 15 weeks 7196059 Z3A.15 Advised pt to f/u immediatel y if temp>101.; abdominal pain, vaginal bleeding greater than 1 pad/hr for greater than 2 hours; vaginal bleeding with or without cramping; bleeding w/clots; cramping like a period. Past pregn liv history of pre-eclampsia 6396518311 50652 Z87.59 screening 2437 64288 Z36.0 Carrier de tection, molecular genetics 2562925 Z14.8 [id number] JORDAN Mahoney[address] [address] 05/28/2022 13:51:50 05/28/2022 14:39:27 Normal in multigravida 7937836371 11648 Z34.82 Past pregn liv history of pre-eclampsia 1749368663 27282 Z87.59 screening for malformation 534368484 Z36.3 Gestation period, 19 weeks 50421437 Z3A.19 Advised pt to f/u immediatel y if temp>101.; abdominal pain, vaginal bleeding greater than 1 pad/hr for greater than 2 hours; vaginal bleeding with or without cramping; bleeding w/clots; cramping like a period. [id number] So Lai CNM [address] [address] 06/25/2022 13:52:20 06/25/2022 21:47:33 Normal in multigravida 7512497863 69186 Z34.82 Past pregn liv history of pre-eclampsia 7291814611 Z87.59 Gestation period, 23 weeks 26520308 Z3A.23 labor precaution s given. FM counts discussed. F/u in L&D if experienci ng decreased movement, leaking fluid, 4 or more contractio ns in 1 hour not relieved by rest and fluids, or regular uterine contractio ns increasing in frequency and/or intensity. [id number] So Lai CNM [facility] [address] [place] [address] 07/30/2022 13:53:03 07/30/2022 15:06:13 Normal in multigravida 2345718480 58482 Z34.82 screening 2437 83154 Z36.89 grow th restriction 50508367 O36.5999 size is 9th% & may be trending toward IUGRAmniot ic fluid volume: within normal limitsNo malformati ons were seen within the limitation s of ultrasound Umbilical artery Doppler: normal EDBFPoster ior placenta with marginal cord insertion Past pregn liv history of pre-eclampsia 1254408895 19100 Z87.59 Gestation period, 28 weeks 01893935 Z3A.28 labor precaution s given. FM counts discussed. F/u in L&D if experienci ng decreased movement, leaking fluid, 4 or more contractio ns in 1 hour not relieved by rest and fluids, or regular uterine contractio ns increasing in frequency and/or intensity. [id number] [facility] [address] [place] [address] 08/13/2022 13:59:13 08/13/2022 15:57:19 Gestation period, 30 weeks 96121804 Z3A.30 Routine an tenatal care 891316680 Z34.83 Past pregn liv history of pre-eclampsia 0951309692 Z87.59 [id number] Judi Dennis CNM [facility] [address] [place] [address] 08/27/2022 14:12:26 08/28/2022 08:20:17 Gestation period, 31 weeks 41581959 Z3A.31 [id number] [facility] [address] [place] [address] 09/24/2022 13:45:09 09/24/2022 14:21:22 Normal in multigravida 2230425580 62644 Z34.83 screening 2437 33938 Z36.85 Gestation period, 36 weeks 94093648 Z3A.36 Labor precaution s given. FM counts discussed. F/u in L&D if experienci ng decreased movement, SROM, or regular uterine contractio ns increasing in frequency and/or intensity. Iron defic iency anemia of 888489438 O99.553 [id number] ALLAN RIVER, [address] [address] 10/01/2022 14:36:51 10/02/2022 11:54:08 Gestation period, 37 weeks 25417102 Z3A.37 Pt is here for a DINESH appointmen t. She is taking vitamins. She has no complaints or questions. Denies vaginal bleeding, abdominal cramps, N/V, contractio ns, and LOF. Denies headache, vision changes, swelling of hands or face, and epigastric pain. Reports feeling movement. Discussed Movement Counts. GBS: Positive, patient made aware of protocol once in labor. Discussed Labor Precaution s. Follow up in L&D if experienci ng decreased movement, leaking fluid, or regular uterine contractio ns increasing in frequency and/or intensity. Routine an tenatal care 561163063 Z34.93 [id number] So Lai CNM [address] [address] 10/15/2022 12:35:13 10/15/2022 14:10:57 Normal in multigravida 8434442364 28418 Z34.83 Gestation period, 39 weeks 83445314 Z3A.39 Labor precaution s given. FM counts discussed. F/u in L&D if experienci ng decreased movement, SROM, or regular uterine contractio ns increasing in frequency and/or intensity. [id number] Brittani acevedo, [address] [address] 10/09/2022 13:58:07 10/09/2022 17:46:34 Gestation period, 38 weeks 36448760 Z3A.38 [id number] So Lai [address] [address] 10/22/2022 12:01:11 10/22/2022 13:33:24 -induced hypertension 86543700 O13.1 O13.2 O13.3 Pt reports no symptoms of PreE this visit. Will repeat labs today.S/S of Pre-eclamp david reviewed in detail. Caution pt to be seen right away either in the office or at hospital if CHRISTINE, visual changes such as floaters, narrowing, and/or shortening of vision, RUQ//epiga stric pain. Checking BPs at home - target range reviewed - 150/100 or higher go to hospital for evaluation . [id number] JORDAN Mahoney[address] [address] 11/12/2022 14:06:16 11/12/2022 17:45:09 Maternal depression screening 1495402505 03963 Z13.32 COUNSELING was provided today regarding the following topics:- healthy eating habits & regular exercise - continue light activity & can start lightexerc ise such as walking- Sexual activity - no vaginal penetratio n, no tampons until 6 weeks PP- may resume intercours e after 6 wks PP.- Briefly reviewed contracept khadar options & encouraged to consider preferred optionfor next visit- Continue vitamins- Baby blues & depression discussed- She denies any feelings of depression , frequent crying or feelings of harming self orothers.- EPDS is --5- Educated on the warning signs of depression and when to seek medicalatt ention.- Perineal care - use witch alexandrea & dermaplast as needed;- Laceration s: __healing- SAFE SLEEPING INSTRUCTIO NS- avoid back sleep, co-sleepin g- maintain cool environmen t- no blankets or other objects in crib that could present hazard to infant.- FOLLOW-UP: Schedule a follow-up appointmen t in 4 wks [id number] TONEY RUCKER [facility] [address] [place] [address] 12/14/2022 15:04:58 12/14/2022 17:40:56 state 70918524 Z39.2 Patient is here for her 6 week visit. Her course was uncomplica radha. Denies pelvic pain. Denies any acute concerns. Baby and Mom are doing good. Home life is going well. -- Delivery Date: 10/16/2022- -Vaginal-- Depression discussed, may occur up to 1 year after delivery. Pt denies any feelings of depression , frequent crying, or feelings of harming self or others. Educated on the warning signs of depression and when to seek medical attention. -- PNV while at reproducti ve age for benefits in early . -- Restart exercise as tolerated. -- May resume sexual intercours e as tolerated. -- Discussed benefits of waiting minimum 12-18 months between pregnancie s to reduce negative outcomes.- - Lochia: Bled for 2 weeks. Scant spotting. No odor.-- Uterus: Involuted- - Bowl and Bladder: Reports no issues. Discussed fiber intake, staying hydrated, and stool softeners PRN.-- Perineum: Denies redness, edema, or discharge. Discussed Perineal care witch alexandrea and dermoplast PRN.-- Hemorrhoid s: Denies. Discussed Witch Alexandrea pads, hemorrhoid balm, and stool softener PRN.-- Breasts: Pt is breast feeding. Denies breast pain, warmth, or firmness. Encouraged continuing breastfeed ing. Counseled regarding benefits for mother and baby.-- Safe Sleeping Instructio ns per AAP: STRONGLY ADVISED against co-sleepin g with infants. Infants should always sleep: on their backs, on firm surfaces, on clean surfaces, in the absence of (second hand) smoke, under light (comfortab le) blanketing , and their heads should never be covered. Avoid objects in the crib that could present hazard to .-- Pre-Eclamp david S/S reviewed in detailed. Cautioned pt to be seen right away in office or at hospital if CHRISTINE, visual changes (floaters, narrowing, and/or shortening of vision), RUQ/epigas tric pain). If checking BP's at home - target range reviewed - >150/90 go to hospital for evaluation .-- Contracept ion options discussed and would like: Planning Epifanio IUD-PA case sent-- PAP Collected today Gynecologi c examination 29924173 Z01.419 ASCCP guidelines reviewed with pt. Pap collected and sent. Further POC pending lab result review. Pt states understand ing of POC. Depression screening 171 352716 Z13.31 EPDS: 3 Pt educated on normal EPDS scoring, and discussed depression precaution s and when to notify HCP/go to ER. [id number] So Lai CNM [facility] [address] [place] [address] 03/19/2023 15:30:23 03/19/2023 17:21:15 Insertion of intrauterine contraceptive device 41318764 Z30.430 IUD in correct position within EMC28 y.o. presenting for copper IUD placement. - Risks of abnormal bleeding, uterine perforatio n (03/999), infection, interrupti on of , expulsion, failure, and ectopic in rare cases were reviewed and all questions were answered - After reviewing Paragard literature , consent was signed and witnessed- IUD placed without incident - Reviewed >99% efficacy as contracept khadar and potential for AUB/crampi ng for first few days to months- F/u as needed. Health Concerns Section Related Observation LastModified by Organization Detai ls LastModified Time None Recorded Concern Status LastModified by Organization Details LastModified Time None Recorded Advance Directives Directive None Recorded Payers Encounter Date Sequence Insurance Name Policy Number Policy López Covered Member ID López Member ID Guarantor Name 10/15/2022 1 [place] [id number] Zoë [employer] [id number] 15 [facility] 10/22/2022 1 [place] [id number] [employer] [id number] 15 [employer] 11/12/2022 1 [place] [id number] [facility] [id number] 15 [facility] 12/14/2022 1 [place] [id number] [facility] [id number] 15 [facility] 03/19/2023 1 [place] [id number] [facility] [id number] 15 [facility] Notes Date Note Type Note Provider Name and Address Organization Details Recorded Time 3 text/html Zoë here for DINESH at 39.3 weeks r. +FM, denies VB, LOF. , , RUQ pain, contractionsAutumn has notice few days ago her home bp machine showed her blood pressure high but the one at hospital check in was normalShe has had some blurred vision and head aches So Lai CNM [facility] [place], [address], [employer] 10/15/2022 13:40:42 3 text/html Care Management - HypertensionReported bypatient.Prognosis:expec radha outcome: improve; prognosis: Severity:does not interfere with daily activities Associated Symptoms:no dizziness; no lightheadedness; no chest pain; no shortness of breath; no palpitations; no edema; no calf muscle cramps; no blurred vision; no confusion; no headaches; no fatigue So Lai CNM [address] [place], [address], [employer] 10/22/2022 12:41:18 3 text/html & CareReported bypatient. History Including Labor & Deliveryvaginal delivery; date:10/16/2022 time: Nursery Stay & Post-Dischargebirth weight:7lbs 1oz; discharge date: 11/18/2022; left breast min every ____ hour; right breast min every ____ hour So Lai CNM [address] [place], [address], [employer] 11/12/2022 14:45:04 3 text/html & CareReported bypatient. History Including Labor & Deliverymedical problems:Hypeternsion; vaginal delivery; date:10/16/2022 time: ; maternal blood type:O positive Nursery Stay & Post-Dischargebirth weight:7lbs 1oz; discharge date: 11/18/2022 presents for 6 visit. [place]AN [place], TONEY [address] [place], [address], [facility] [employer] IV 12/14/2022 15:31:32 3 text/html Zoë presents today for a paraguard insertion.She seems a little nervous. She has no concerns or questions. So Lai, DERRICK [address] [place], [address], [facility] [email or web address] IV 03/24/2023 02:14:43 OBGyn Episode Ob Episode Information Episode Created Date Number of Fetuses Patient Bloodtype Patient rh Status Prepregnancy Weight lbs Domestic Partner Domestic Partner Phone Father Name Sulfur Chloride Operator Status 06/13/19 22 1 CLOSED Fetus Data First Name Last Name Admitted to NICU Weight (g) Sex Living Outcome Pediatric Complications Fetus ID Race Codes Race Delivery Type 2863.07 2704 M Full Term [id number] Dominik Calculation Initial Dominik Date Initial Exam Date Initial Exam Provider Initial Ultrasound Date Last Menstrual Period Date Ultra Sound Weeks Gestation 0 Eighteen To Twenty Week Dominik Update Ultra Sound Date Fundal Height At Umbil Quickening Date Ultra Sound Latest Weeks Gestation Final Dominik Confirmed By Final Dominik Confirmed Date Final Dominik Date Ultra Sound Latest Days Gestation 0 0 Menstrual History Last Menstrual Date Menses Monthly On Bcp Conception Prior Menses Frequency Hcg Plus Date Menarche Onset Age Delivery Information Delivery Date Delivery Type Labor Anesthesia Weeks Gestation Incision Type Labor Labor Length Hrs Delivered By Post Complications Tubal Sterilization Discharge Date Comments 0 38 true Severe PreE Discharge Information Feeding Method Contraceptive Method Maternal HG B and HCT Levels Ob Episode Information Episode Created Date Number of Fetuses Patient Bloodtype Patient rh Status Prepregnancy Weight lbs Domestic Partner Domestic Partner Phone Father Name Sulfur Chloride Operator Status 03/27/20 22 1 O Positive CLOSED Fetus Data First Name Last Name Admitted to NICU Weight (g) Sex Living Outcome Pediatric Complications Fetus ID Race Codes Race Delivery Type false 3203.49 35 M true Full Term None [id number] 8617-3 White Problems Problem Notes Problem Name Start Date End Date Resolution Snomed Code Not e Normal in multigravida [id number] Past history of pre-eclampsia 752872752699288 growth restriction 07227343 size is 9 th% & may be trending toward IUGRAFI: within normal limitsUA Doppler: normal EDBFPosterior placenta with marginal cord insertion5/6 US: 27%tile Marginal insertion of umbilical cord 99490695 Iron deficiency anemia 72648715 recheck CBC at 34 weeks Dominik Calculation Initial Dominik Date Initial Exam Date Initial Exam Provider Initial Ultrasound Date Last Menstrual Period Date Ultra Sound Weeks Gestation 10/19/2022 03/27/2022 03/12/2022 01/10/2022 8 Eighteen To Twenty Week Dominik Update Ultra Sound Date Fundal Height At Umbil Quickening Date Ultra Sound Latest Weeks Gestation Final Dominik Confirmed By Final Dominik Confirmed Date Final Dominik Date Ultra Sound Latest Days Gestation 0 [email or web address] 04/30/2022 10/20/19 23 0 Pre-richi Flowsheet Flowsheet Date 03/31/2022 Flores Score Blood Edema Fundus Height Fundus Units Glucose Ketones Leukocytes Nitrite Labor Signs Protein Cervic Dilation Cervic Effacement Cervic Station Type Weight in lbs Pre/Post Dialysis Refused With clothes 130.852775078266 BP Diastolic BP Location Tested BP Systolic BP Type 70 118 sitting Fetus Heart Rate Present A 140 Fetus Movement Comments active fetus. no issues Flowsheet Date 04/30/2022 Flores Score Blood Edema Fundus Height Fundus Units Glucose Ketones Leukocytes Nitrite Labor Signs Protein Cervic Dilation Cervic Effacement Cervic Station none none Type Weight in lbs Pre/Post Dialysis Refused With clothes 133.277672274374 BP Diastolic BP Location Tested BP Systolic BP Type 64 L arm 112 sitting Fetus Heart Rate Present A 153 Fetus Movement Comments No OB concerns. PreE baselin e labs today. ASA LD started. Active FM on BSUS. Flowsheet Date 05/28/2022 Flores Score Blood Edema Fundus Height Fundus Units Glucose Ketones Leukocytes Nitrite Labor Signs Protein Cervic Dilation Cervic Effacement Cervic Station none none Type Weight in lbs Pre/Post Dialysis Refused With clothes 148.994204095550 BP Diastolic BP Location Tested BP Systolic BP Type 74 R arm 116 sitting Fetus Heart Rate Present A 148 Fetus Movement A Yes Comments No OB concerns. MF referral for anatomy sent. undecided on MSAFP. Will stop by in the next 3-4 days if she decides to have it drawn. Flowsheet Date 06/25/2022 Flores Score Blood Edema Fundus Height Fundus Units Glucose Ketones Leukocytes Nitrite Labor Signs Protein Cervic Dilation Cervic Effacement Cervic Station none none Type Weight in lbs Pre/Post Dialysis Refused With clothes 155.065059475056 BP Diastolic BP Location Tested BP Systolic BP Type 72 L arm 116 sitting Fetus Heart Rate Present A 155 Fetus Movement A Yes Comments No OB concerns. Will call [facility] to reschedule anatomy scan. Flowsheet Date 07/30/2022 Flores Score Blood Edema Fundus Height Fundus Units Glucose Ketones Leukocytes Nitrite Labor Signs Protein Cervic Dilation Cervic Effacement Cervic Station none none Type Weight in lbs Pre/Post Dialysis Refused With clothes 167.855316752185 BP Diastolic BP Location Tested BP Systolic BP Type 68 118 Fetus Heart Rate Present A 147 Fetus Movement A Yes Comments MFM appointment tomorrow. 3r d tri labs done. F/u in 2 weeks unless MFM US still FGR Flowsheet Date 08/13/2022 Flores Score Blood Edema Fundus Height Fundus Units Glucose Ketones Leukocytes Nitrite Labor Signs Protein Cervic Dilation Cervic Effacement Cervic Station 28 cm none Type Weight in lbs Pre/Post Dialysis Refused With clothes 174.807936598110 BP Diastolic BP Location Tested BP Systolic BP Type 68 L arm 124 sitting Fetus Heart Rate Present A 135 Present Fetus Movement A Yes Comments Pt had US with MF on 08/01: G mega 27%tile, Recommended US in 3 weeks for growth. No OB complaints. Flowsheet Date 08/27/2022 Flores Score Blood Edema Fundus Height Fundus Units Glucose Ketones Leukocytes Nitrite Labor Signs Protein Cervic Dilation Cervic Effacement Cervic Station none 31 none none neg Type Weight in lbs Pre/Post Dialysis Refused With clothes 178.498344817531 BP Diastolic BP Location Tested BP Systolic BP Type 60 110 sitting Fetus Heart Rate Present A 140 Fetus Movement A Yes Comments Check CBC next visit. Has gr owth scheduled with M. Flowsheet Date 09/24/2022 Flores Score Blood Edema Fundus Height Fundus Units Glucose Ketones Leukocytes Nitrite Labor Signs Protein Cervic Dilation Cervic Effacement Cervic Station trace 36 cm Yossi [place] Type Weight in lbs Pre/Post Dialysis Refused With clothes 188.803214350209 BP Diastolic BP Location Tested BP Systolic BP Type 76 L arm 124 sitting Fetus Heart Rate Present A 141 Fetus Movement A Yes Comments No OB concerns. labor precau tions and activity discussed in detail. f/u in 1 week Flowsheet Date 10/01/2022 Flores Score Blood Edema Fundus Height Fundus Units Glucose Ketones Leukocytes Nitrite Labor Signs Protein Cervic Dilation Cervic Effacement Cervic Station 37 cm none [place] neg Type Weight in lbs Pre/Post Dialysis Refused With clothes 188.425768458944 BP Diastolic BP Location Tested BP Systolic BP Type 72 130 sitting Fetus Heart Rate Present A 135 Present Fetus Movement A Yes Comments No OB concerns. GBS positive . Labor and pre-e precautions reviewed, discussed when to call HCP/go to L&D. Patient is monitoring BP's at home. RTC in 1 week. Flowsheet Date 10/09/2022 Flores Score Blood Edema Fundus Height Fundus Units Glucose Ketones Leukocytes Nitrite Labor Signs Protein Cervic Dilation Cervic Effacement Cervic Station 39 none none neg Type Weight in lbs Pre/Post Dialysis Refused With clothes 191.18536199234 BP Diastolic BP Location Tested BP Systolic BP Type 70 122 sitting Fetus Heart Rate Present A 147 Fetus Movement A Yes Comments BP stable today, discussed I OL and pt declines today No Pre E symptoms Flowsheet Date 10/15/2022 Flores Score Blood Edema Fundus Height Fundus Units Glucose Ketones Leukocytes Nitrite Labor Signs Protein Cervic Dilation Cervic Effacement Cervic Station trace none Type Weight in lbs Pre/Post Dialysis Refused With clothes 195.824794582264 BP Diastolic BP Location Tested BP Systolic BP Type 90 L arm 132 sitting 96 R arm 134 sitting Fetus Heart Rate Present A 132 Fetus Movement A Yes Comments Pt reports CHRISTINE & visual zavaleta es. Sent to E for IOL. Flowsheet Date 10/22/2022 Flores Score Blood Edema Fundus Height Fundus Units Glucose Ketones Leukocytes Nitrite Labor Signs Protein Cervic Dilation Cervic Effacement Cervic Station Type Weight in lbs Pre/Post Dialysis Refused With clothes 175.042772364376 BP Diastolic BP Location Tested BP Systolic BP Type 78 L arm 120 sitting Fetus Heart Rate Present Fetus Movement Comments Flowsheet Date 11/12/2022 Flores Score Blood Edema Fundus Height Fundus Units Glucose Ketones Leukocytes Nitrite Labor Signs Protein Cervic Dilation Cervic Effacement Cervic Station Type Weight in lbs Pre/Post Dialysis Refused With clothes 169.005983630203 BP Diastolic BP Location Tested BP Systolic BP Type 80 R arm 124 sitting Fetus Heart Rate Present Fetus Movement Comments Flowsheet Date 12/14/2022 Flores Score Blood Edema Fundus Height Fundus Units Glucose Ketones Leukocytes Nitrite Labor Signs Protein Cervic Dilation Cervic Effacement Cervic Station Type Weight in lbs Pre/Post Dialysis Refused With clothes 171.987286244977 BP Diastolic BP Location Tested BP Systolic BP Type 80 L arm 122 sitting Fetus Heart Rate Present Fetus Movement Comments Menstrual History Last Menstrual Date Menses Monthly On Bcp Conception Prior Menses Frequency Hcg Plus Date Menarche Onset Age 1001/10/2022 Delivery Information Delivery Date Delivery Type Labor Anesthesia Weeks Gestation Incision Type Labor Labor Length Hrs Delivered By Post Complications Tubal Sterilization Discharge Date Comments 3 Induce d Regional-Ep idural 39.4 So Lehman CNM Hypertension 10/18/2022 1st dg vaginal and labial laceratio ns. Discharge Information Feeding Method Contraceptive Method Maternal HG B and HCT Levels Breast Ob Episode Information Episode Created Date Number of Fetuses Patient Bloodtype Patient rh Status Prepregnancy Weight lbs Domestic Partner Domestic Partner Phone Father Name Sulfur Chloride Operator Status 11/13/19 23 1 DELETED Dominik Calculation Initial Dominik Date Initial Exam Date Initial Exam Provider Initial Ultrasound Date Last Menstrual Period Date Ultra Sound Weeks Gestation 0 Eighteen To Twenty Week Dominik Update Ultra Sound Date Fundal Height At Umbil Quickening Date Ultra Sound Latest Weeks Gestation Final Dominik Confirmed By Final Dominik Confirmed Date Final Dominik Date Ultra Sound Latest Days Gestation 0 0 Menstrual History Last Menstrual Date Menses Monthly On Bcp Conception Prior Menses Frequency Hcg Plus Date Menarche Onset Age Delivery Information Delivery Date Delivery Type Labor Anesthesia Weeks Gestation Incision Type Labor Labor Length Hrs Delivered By Post Complications Tubal Sterilization Discharge Date Comments 3 Regional-Ep idural 38 Discharge Information Feeding Method Contraceptive Method Maternal HG B and HCT Levels
--- OUTSIDE RECORDS SUMMARY | 2024-07-31 19:37 | XMS_ITS | Clinical Summary ---
Author Organization [facility] Address [facility] [place] [address] Care Team Providers Care Overhead Cleaner Maintainer Name Role Phone Hunter Whelan MD Primary Care Provider [phone] Allergies Active Allergy Reactions Criticality Noted Date Comments Escitalopram Vomiting 12/09/2023 Medications ondansetron 4 MG disintegrating tablet Take 1 tablet (4 mg total) by mouth every 8 (eight) hours as needed for Nausea. 20 tablet 2 Active famotidine 20 MG tablet Take 1 tablet (20 mg total) by mouth 2 (two) times daily. 60 tablet 2 Active ondansetron (ZOFRAN) 4 MG tablet Take 1 tablet (4 mg total) by mouth every 8 (eight) hours as needed for Nausea. 12 tablet 4 Active Social History Tobacco Use Types Packs/Day Years Used Date Smoking Tobacco: Never Smokeless Tobacco: Never Chew Alcohol Use Standard Drinks/Week Comments Not Currently 0 (1 standard drink = 0.6 oz pur e alcohol) social Comments No Sex and Gender Information Value Date Recorded Sex Assigned at Not on file Legal Sex Female 9:34 PM CDT Gender Identity Not on file Sexual Orientation Not on file Last Filed Vital Signs Vital Sign Reading Time Taken Comments Blood Pressure 118/91 12/09/2023 9:20 PM CDT Pulse 106 12/09/2023 9:20 PM CDT Temperature 37 C (98.6 F) 12/09/2023 6:41 PM CDT Respiratory Rate 21 12/09/2023 9:20 PM CDT Oxygen Saturation 99% 12/09/2023 9:20 PM CDT Inhaled Oxygen Concentration - - Weight 61.3 kg (135 lb 2.3 oz) 12/09/2023 6:41 P M CDT Height 162.6 cm (5' 4 ) 12/09/2023 6:41 PM CDT Body Mass Index 23.2 12/09/2023 6:41 PM CDT Plan of Treatment Health Maintenance Due Date Last Done Comments Cervical Cancer Screening Pa p Smear (Age 21 to 29) Every 3 Years 1997 Cervical Cancer Screening 1997 Annual Physical 01/21/2000 Hepatitis C 2015 DTaP, Tdap and Td Vaccines ( 1 - Tdap) 01/21/2016 Hepatitis B Vaccines (1 of 3 - 19+ 3-dose series) 01/21/2016 COVID-19 Vaccine (2023-2 5 season) 2023 HPV Vaccines Aged Out No longer eligi ble based on patient's age to complete this topic Meningococcal B Vaccine Aged Out No l onger eligible based on patient's age to complete this topic Meningococcal Vaccine Aged Out No keron roselia eligible based on patient's age to complete this topic Pneumococcal Vaccine: Pediat rics (0 to 5 Years) and At-Risk Patients (6 to 49 Years) Aged Out No longer eligible b ased on patient's age to complete this topic RSV Immunizations Under 20 Months Aged Out No longer eligible based on patient's age to complete this topic Insurance Care Teams Overhead Cleaner Maintainer Relationship Specialty Start Date End Date Hunter Whelan MD [address] [place], [place] [id number] PCP - General FAMILY PRACTICE 07/07/21
--- OUTSIDE RECORDS SUMMARY | 2024-07-31 19:37 | XMS_ITS | Clinical Summary ---
Author Organization [place] [id number] Address [facility] [place] [address] Care Team Providers Care Senior Geotechnical Engineer Name Role Phone Hunter Whelan MD Primary Care Provider [phone] Praveen Garcia MD Unavailable [phone] Allergies No known active allergies Medications famotidine (PEPCID) 20 mg tablet Take 1 tablet (20 mg total) by mouth 2 (two) times a day 60 tablet 10/26/2021 Active PNV cmb 65-rycn-KO-omeg a-3-dha [id number] mg combo packIndications : Take 1 tablet by mouth daily Active aspirin 81 mg enteric coated tablet Take 2 tablets (162 mg total) by mouth daily Active iron 18 mg tablet Take 1 tablet by mouth 2 (two) times a day Active buPROPion SR (WELLBUTRIN SR) 100 mg 12 hr tablet Take 1 tablet (100 mg total) by mouth daily Active NIFEdipine (PROCARDIA XL/ADALAT CC) 60 mg 24 hr tablet Take 1 tablet (60 mg total) by mouth daily 30 tablet 11 10/18/2022 Active metoclopramide (REGLAN) 10 mg tablet Take 1 tablet (10 mg total) by mouth every 6 (six) hours 20 tablet 07/28/2023 Active famotidine (PEPCID) 20 mg tablet Take 1 tablet (20 mg total) by mouth 2 (two) times a day 60 tablet 07/28/2023 Active Active Problems Problem Noted Date Diagnosed Date 38 weeks gestation of 10/15/2022 Surgical History Surgery Date Site/Laterality Comments WISDOM TOOTH EXTRACTION as a teen Medical History Medical History Date Comments Mental disorder anxiety and depr ssion Hypertension severe preeclamp david G1 depression Social History Tobacco Use Types Packs/Day Years Used Date Smoking Tobacco: Never Assessed Tobacco Cessation:Counseling Given: Not Answered AUDIT-C Answer Date Recorded Q1: How often do you have a drink containing alc ohol? Never 10/15/2022 Average Number of Drinks Not on file 023 Frequency of Binge Drinking Not on file 09/27 [place] Depression Scale Answer Date Recorded [place] Depression Scale Total 1 10/18/2022 The thought of harming myself has occurred to me . Never 10/18/2022 Personal Safety Answer Date Recorded Have you ever been in or are you currently in a harmful physical or emotional relationship or is someone making you feel afraid or unsafe? 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) Last Filed Vital Signs Vital Sign Reading Time Taken Comments Blood Pressure 139/96 07/28/2023 9:30 PM CDT Pulse 94 07/28/2023 9:10 PM CDT Temperature 37 C (98.6 F) 07/28/2023 6:26 PM CDT Respiratory Rate 18 07/28/2023 6:26 PM CDT Oxygen Saturation 100% 07/28/2023 9:10 PM CDT Inhaled Oxygen Concentration - - Weight 67.6 kg (149 lb 0.5 oz) 07/28/2023 6:26 P M CDT Height 162.6 cm (5' 4 ) 07/28/2023 6:26 PM CDT Body Mass Index 25.58 07/28/2023 6:26 PM CDT Plan of Treatment Health Maintenance Due Date Last Done Comments Cervical Cancer Screening 1997 DTaP/Tdap/Td Vaccine (1 - Tdap) 01/21/2008 Varicella Vaccines (1 of 2 - 13+ 2-dose series) 2010 Hepatitis B Screening 2015 Regular Well Visit/Exam 18-64 2015 Depression Screening 10/19/2023 10/18/2022 Influenza Vaccine (#1) 2023 Hepatitis C Screening Completed 12/01/2017 HPV Vaccines Aged Out No longer eligi ble based on patient's age to complete this topic Pneumococcal vaccine <65 Aged Out No longer eligible based on patient's age to complete this topic Procedures Procedure Name Priority Date/Time Associated Diagnosis Comments HEPATITIS C ANTIBODY Routine 12/01/2017 4:02 PM CDT from Last 3 Months or Most Recently Relevant to Health Maintenance Results * Hepatitis C antibody (12/01/2017 4:02 PM CDT) Hep C Ab NONREACT NONREACTIVE 12/01/2017 8:22 PM CDT [facility] HISTORICAL RESULTS Comment: Siemens Efficiency ExchangeaurXP using LUZ MARIA (chemiluminescent immunoassay) technology. NONREACTIVE: Antibodies to Hepatitis C not detected. This does not exclude early acute Hepatitis C infection, possibility of exposure to Hepatitis C, antibodies below detection limit, or to lack of antibody reactivity to the antigen used in this assay. EQUIVOCAL: Antibodies to Hepatitis C may or may not be present. Sample to be confirmed by real-time PCR method. REACTIVE: Antibodies to Hepatitis C detected. 12/01/2017 4:02 PM CDT 12/01/2017 4:06 PM CDT Claudia Ulloa NP LAB MICROBIOLOGY - GENERAL O RDERABLES Final Result [facility] HISTORICAL RESULTS from Last 3 Months or Most Recently Relevant to Health Maintenance Insurance [employer] OPEN ACCESS Smackages ACCESS OOS Advance Directives For more information, please contact: [phone] * Full Code (Latest Code Status on File) Date Activated Date Inactivated Comments 10/16/2022 7:56 PM 10/18/2022 4:24 PM * Full Code Date Activated Date Inactivated Comments 10/15/2022 2:56 PM 10/16/2022 7:56 PM Full CPR in case of cardiopulmonary arrest Care Teams Senior Geotechnical Engineer Relationship Specialty Start Date End Date Hunter Whelan MD PCP - General Family Medicine 10/26/21 Praveen Garcia MD [address] [place] [address] Consulting Physician Internal Medicine 10/18/22
--- OUTSIDE RECORDS SUMMARY | 2024-07-31 19:37 | XMS_ITS | Referral Summary ---
Author Organization [place] [id number] [facility] Address [facility] [place] [address] Care Team Providers Care Bricklayer'S Assistant Name Role Phone Hunter Whelan MD Primary Care Provider [phone] Praveen Garcia MD Unavailable [phone] Allergies No known active allergies Medications famotidine (PEPCID) 20 mg tablet Take 1 tablet (20 mg total) by mouth 2 (two) times a day 60 tablet 10/26/2021 Active PNV cmb 12-wwol-FT-omeg a-3-dha [id number] mg combo packIndications : Take 1 tablet [...] Diagnosed Date 38 weeks gestation of 10/15/2022 Social History Tobacco Use Types Packs/Day Years Used Date Smoking Tobacco: Never Assessed Tobacco Cessation:Counseling Given: Not Answered AUDIT-C Answer Date Recorded Q1: How often do you have a drink containing alc ohol? 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 NONREACTIVE: [...] MICROBIOLOGY - GENERAL O RDERABLES Final Result [facility] HISTORICAL RESULTS from Last 3 Months or Most Recently Relevant to Health Maintenance Insurance [employer] OPEN ACCESS [employer] OOS Advance Directives For more information, please contact: [phone] * Full Code (Latest Code Status on File) Date Activated Date Inactivated Comments 10/16/2022 7:56 PM 10/18/2022 4:24 PM * Full Code Date Activated Date Inactivated Comments 10/15/2022 2:56 PM 10/16/2022 7:56 PM Full CPR in case of cardiopulmonary arrest Care Teams Bricklayer'S Assistant Relationship Specialty Start Date End Date Hunter Whelan MD PCP - General Family Medicine 10/26/21 Praveen Garcia MD [address] [place] [address] Consulting Physician Internal Medicine 10/18/22
--- NOTE | 2024-07-31 21:44 | PC.NURSE ---
Call x2 for labs, patient not seen in waiting room.
--- OUTSIDE RECORDS SUMMARY | 2024-07-31 22:32 | XMS_ITS | Clinical Summary ---
Author Organization [facility] Address [address] [place] [address] Care Team Providers Care Wheel Truer Name Role Phone Hunter Whelan MD Primary Care Provider Source Comments [facility],non-owned Affiliates and Associated Physician Practices is amultiple site organization consisting of ambulatory clinics and hospital sitesin [place], [place], [place] and [place]. This disclosure is being madepursuant to the Care Everywhere program and may not contain all information available regarding this patient. Last updated 17.[facility] Allergies No known active allergies Social History [...] complete this topic Insurance ANTH Care Teams Wheel Truer Relationship Specialty Start Date End Date Hunter Whelan MD [address] [place] [address] PCP - General 12/04/21
--- OUTSIDE RECORDS SUMMARY | 2024-07-31 22:33 | XMS_ITS | Referral Summary ---
Author Organization [place] [id number] [facility] Address [facility] [place] [address] Care Team Providers Care Textile Science Technician Name Role Phone Hunter Whelan MD Primary Care Provider [phone] Praveen Garcia MD Unavailable [phone] Allergies No known active allergies Medications famotidine (PEPCID) 20 mg tablet Take 1 tablet (20 mg total) by mouth 2 (two) times a day 60 tablet 10/26/2021 Active PNV cmb 25-lrlk-BR-omeg a-3-dha [id number] mg combo packIndications : Take 1 tablet [...] of Binge Drinking Not on file 09/27 [place] Depression Scale Answer Date Recorded [place] Depression Scale Total 1 10/18/2022 The thought [...] on file 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 NONREACTIVE: [...] - GENERAL O RDERABLES Final Result [facility] HISTORICAL RESULTS from Last 3 Months or Most Recently Relevant to Health Maintenance Insurance [employer] OPEN ACCESS [employer] OOS Advance Directives For more information, please contact: [phone] * Full Code (Latest Code Status on File) Date Activated Date Inactivated Comments 10/16/2022 7:56 PM 10/18/2022 4:24 PM * Full Code Date Activated Date Inactivated Comments 10/15/2022 2:56 PM 10/16/2022 7:56 PM Full CPR in case of cardiopulmonary arrest Care Teams Textile Science Technician Relationship Specialty Start Date End Date Hunter Whelan MD PCP - General Family Medicine 10/26/21 Praveen Garcia MD [address] [place] [address] Consulting Physician Internal Medicine 10/18/22
--- OUTSIDE RECORDS SUMMARY | 2024-07-31 22:33 | XMS_ITS | Clinical Summary ---
Author Organization [place] [id number] [facility] Address [facility] [place] [address] Care Team Providers Care Restaurant Cook Name Role Phone Hunter Whelan MD Primary Care Provider [phone] Praveen Garcia MD Unavailable [phone] Allergies No known active allergies Medications famotidine (PEPCID) 20 mg tablet Take 1 tablet (20 mg total) by mouth 2 (two) times a day 60 tablet 10/26/2021 Active PNV cmb [id number]-onih-SI-omeg a-3-dha [id number] mg combo packIndications : Take 1 tablet [...] of Binge Drinking Not on file 09/27 Woodson Depression Scale Answer Date Recorded [place] Depression Scale Total 1 10/18/2022 The thought [...] on file 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 NONREACTIVE: [...] - GENERAL O RDERABLES Final Result [facility] HISTORICAL RESULTS from Last 3 Months or Most Recently Relevant to Health Maintenance Insurance [employer] OPEN ACCESS [employer] ACCESS OOS Advance Directives For more information, please contact: [phone] * Full Code (Latest Code Status on File) Date Activated Date Inactivated Comments 10/16/2022 7:56 PM 10/18/2022 4:24 PM * Full Code Date Activated Date Inactivated Comments 10/15/2022 2:56 PM 10/16/2022 7:56 PM Full CPR in case of cardiopulmonary arrest Care Teams Restaurant Cook Relationship Specialty Start Date End Date Hunter Whelan MD PCP - General Family Medicine 10/26/21 Praveen Garcia MD [address] [place] [address] Consulting Physician Internal Medicine 10/18/22
--- OUTSIDE RECORDS SUMMARY | 2024-07-31 22:33 | XMS_ITS | Encounter Summary ---
Author Organization [facility] Address [facility] [place] [address] Care Team Providers Care Utility Maintenance Worker Name Role Phone Hunter Whelan MD Primary Care Provider [phone] Reason for Referral * Imaging (Emergency) - New Request Specialty Diagnoses / Procedures Referred By Franklin santo Referred To Contact RADIOLOGY Procedures CT ABD+PEL W IV CON ONLY Sidney Egan MD [address] [place] [address] Phone: tel: fax: Referral ID Status Reason Start Date Expiration Date V isits Requested Visits Authorized [id number] New Request 07/31/2024 07/31/2025 1 1 Reason for Visit * Reason Comments Abdominal Pain Vomiting Flu Like Symptoms Encounter Details Date Type Department Care Team (Late st Contact Info) Description 07/31/2024 9:21 PM CDT - Present Emergency [facility] Emergency Room [address] [place] [id number] Sidney Egan MD [address] [place] [address] Abdominal Pain; Vomiting; Flu Like Symptoms Social History Tobacco Use Types Packs/Day Years Used Date Smoking Tobacco: Never Smokeless Tobacco: Never Chew Alcohol Use Standard Drinks/Week Comments Not Currently 0 (1 standard drink = 0.6 oz pur e alcohol) social Comments No Sex and Gender Information Value Date Recorded Sex Assigned at Female 07/31/2024 9:33 PM CDT Legal Sex Female 9:34 PM CDT Gender Identity Not on file Sexual Orientation Not on file documented as of this encounter Last Filed Vital Signs Vital Sign Reading Time Taken Comments Blood Pressure 148/94 07/31/2024 9:28 PM CDT Pulse 70 07/31/2024 9:28 PM CDT Temperature 36.9 C (98.4 F) 07/31/2024 9:28 PM CDT Respiratory Rate 18 07/31/2024 9:28 PM CDT Oxygen Saturation 98% 07/31/2024 9:28 PM CDT Inhaled Oxygen Concentration - - Weight 61.2 kg (135 lb) 07/31/2024 9:28 PM CDT Height 162.6 cm (5' 4 ) 07/31/2024 9:28 PM CDT Body Mass Index 23.17 07/31/2024 9:28 PM CDT documented in this encounter Functional Status * Calculated C-SSRS Risk Score (Lifetime/Recent) Answer Date of Assessment Author Status No Risk Indicated 07/31/2024 9:31 PM CDT Maisha Briceno RN Active * [place] Suicide Severity Rating Scale (Screener/Recent Self-Report) Question Answer Date of Assessment Author Status 1. Wish to be (Past 1 Month) No 07/31/2024 9:31 PM CDT Maisha Briceno RN Active 2. Non-Specific Active Suicidal Thoughts (Past 1 Month) No 07/31/2024 9:31 PM CDT Maisha Briceno RN Active 6. Suicidal Behavior (Lifetime) No 07/31/2024 9:31 PM CDT Maisha Briceno RN Active documented as of this encounter ED Notes * Zainab Flannery RN - 07/31/2024 9:28 PM CDT Pt arrived to facility with an IV in place from urgent care. IV was discontinued and site cleansed and wrapped with 2x2 and coban documented in this encounter Plan of Treatment Pending Results Name Type Priority Associated Diagnoses Date /Time CULTURE URINE Microbiology STAT 9:59 PM CDT ECG 12 lead EKG-NonRad Routine 07/31/2024 9: 58 PM CDT TYPE AND SCREEN Blood Bank STAT 9:40 PM CDT Scheduled Orders Name Type Priority Associated Diagnoses Orde r Schedule CULTURE URINE Microbiology STAT Once for 1 Occurrences starting 07/31/2024 until 07/31/2024 CT ABD+PEL W IV CON ONLY CT STAT One time imaging One time imaging for 1 Occurrences starting 07/31/2024 until 07/31/2024 TYPE AND SCREEN Blood Bank STAT Once for 1 Occurrences starting 07/31/2024 until 07/31/2024 OCCULT BLOOD, FECES Microbiology Routine STA T for 1 Occurrences starting 07/31/2024 until 07/31/2024 documented as of this encounter Procedures * The patient is currently admitted. The information in this section might not be complete until the patient is discharged. Procedure Name Priority Date/Time Associated Diagnosis Comments URINALYSIS, AUTO, COMPLETE STAT 07/31/2024 9:59 PM CDT ECG 12-LEAD Routine 07/31/2024 9:58 PM CDT Procedure Note - 07/31/2024 9:58 PM CDTThis note is in progress. [facility] Test Date: 2024-07-31 Pat Name: DEEPIKA COLVIN Department: 85 Room: EXAM 303 Gender: Female Drapery Hemmer Automatic: : 1995 Requested By: SIDNEY EGAN Order Number: [id number] Reading MD: Measurements Intervals [place] Rate: 75 P: 56 VT: 161 QRS: 78 QRSD: 89 T: 54 QT: 364 QTc: 409 Interpretive Statements SINUS RHYTHM WITH OCCASIONAL SUPRAVENTRICULAR PREMATURE COMPLEXES Compared to ECG 12/09/2023 21:19:22 Sinus tachycardia no longer present CORONAVIRUS (COVID 19) STAT 07/31/2024 9:48 PM CDT INFLUENZA A & B STAT 07/31/2024 9:48 PM CDT RESP SYNCYTIAL VIRUS STAT 07/31/2024 9:48 PM CDT LACTIC ACID W REFLEX (SEPSIS) STAT 07/31/2024 9:47 PM CDT COMPREHENSIVE METABOLIC PANEL STAT 07/31/2024 9:45 PM CDT CHORIONIC GONADOTROPIN HCG QL STAT 07/31/2024 9:45 PM CDT CBC W/DIFF AUTOMATED STAT 07/31/2024 9:45 PM CDT MAGNESIUM STAT 07/31/2024 9:45 PM CDT LIPASE STAT 07/31/2024 9:45 PM CDT CK (CPK) STAT 07/31/2024 9:45 PM CDT documented in this encounter Results * (ABNORMAL) URINALYSIS, AUTO, COMPLETE (07/31/2024 9:59 PM CDT) COLOR (U) YELLOW 07/31/2024 10:18 PM CDT [facility] TRANSPARENCY CLEAR 07/31/2024 10:18 PM CDT [facility] SPECIFIC GRAVITY (U) >1.030(H) 1.000 - 1.030 07/31/2024 10:18 PM CDT [facility] U PH 6.0 5.0 - 9.0 07/31/2024 10:18 PM CDT [facility] LEUKOCYTES (U) NEGATIVE NEGATIVE 07/31/2024 10:18 PM CDT [facility] NITRITES NEGATIVE NEGATIVE 07/31/2024 10:18 PM CDT [facility] PROTEIN RANDOM (U) NEGATIVE NEGATIVE 07/31/2024 10:18 PM CDT [facility] GLUCOSE (U) NEGATIVE NEGATIVE 07/31/2024 10:18 PM CDT [facility] KETONES MG/DL (U) 3+(A) NEGATIVE 07/31/2024 10:18 PM CDT [facility] BILIRUBIN (U) NEGATIVE NEGATIVE 07/31/2024 10:18 PM CDT [facility] BLOOD (U) NEGATIVE NEGATIVE 07/31/2024 10:18 PM CDT [facility] WBC/HPF NONE SEEN 0 - 5 /HPF 07/31/2024 10:18 PM CDT [facility] RBC/HPF NONE SEEN 0 - 5 /HPF 07/31/2024 10:18 PM CDT [facility] EPI/HPF RARE /HPF 07/31/2024 10:18 PM CDT [facility] URINE SPECIMEN OBTAINED BY CLEAN CATCH PROCEDURE / Unknown 07/31/2024 9:59 PM CDT us Sidney Egan MD URINE ORDERABLES Final Resu lt [facility] [address] [place] [address], [place] [phone] * RESP SYNCYTIAL VIRUS (07/31/2024 9:48 PM CDT) SPECIMEN TYPE NASOPHARYNGEAL SWAB 07/31/2024 9:48 PM CDT [facility] RAPID RSV NEGATIVE NEGATIVE 07/31/2024 10:26 PM CDT [facility] NASOPHARYNGEAL SWAB / Unknown 07/31/2024 9:48 PM CDT us Sidney Egan MD MICROBIOLOGY - GENERAL ORDE [facility] Final Result Performing Organization Address City/[facility]/ZIP Co de Phone Number [facility] [address] [place] [address], [place] [phone] * CORONAVIRUS (COVID-19) MOLECULAR (07/31/2024 9:48 PM CDT) CORONAVIRUS SARS COV 2 RNA NEGATIVE NEGATIVE 07/31/2024 10:17 PM CDT [facility] Comment: NEGATIVE RESULTS DO NOT RULE OUT COVID 19 AND SHOULD NOT BE USED THE SOLE BASIS FOR TREATMENT OR PATIENT MANAGEMENT DECISIONS, INCLUDING INFECTION CONTROL DECISIONS. NEGATIVE RESULTS SHOULD BE CONSIDERED IN THE CONTEXT OF A PATIENT'S RECENT EXPOSURES, HISTORY AND THE PRESENCE OF CLINICAL SIGNS AND SYMPTOMS CONSISTENT WITH COVID 19. THE ID NOW COVID-19 2.0 TEST HAS BEEN AUTHORIZED BY THE FDA UNDER EAU FOR USE BY AUTHORIZED LABORATORIES. PERFORMED BY NUCLEIC ACID AMPLIFICATION FOR MOLECULAR QUALITATIVE DETECTION OF SARS-COV-2. SPECIMEN TYPE NASAL 07/31/2024 9:48 PM CDT [facility] NASOPHARYNGEAL SWAB / Unknown 07/31/2024 9:48 PM CDT us Sidney Egan MD MICROBIOLOGY - GENERAL LAGRANGEAbbey OSPINA Final Result [facility] [address] [place] [address], [place] [phone] * INFLUENZA A & B (07/31/2024 9:48 PM CDT) Pathologist [facility] SPECIMEN TYPE NASOPHARYNGEAL SWAB 07/31/2024 9:58 PM CDT [facility] INFLUENZA A NEGATIVE NEGATIVE 07/31/2024 10:26 PM CDT [facility] INFLUENZA B NEGATIVE NEGATIVE 07/31/2024 10:26 PM CDT [facility] NASAL STRUCTURE / Unknown 07/31/2024 9:48 PM CDT us Sidney Egan MD MICROBIOLOGY - GENERAL ORDAbbey RABMARY KAY Final Result [facility] [address] [place] [address], [place] [phone] * LACTIC ACID W REFLEX (SEPSIS) (07/31/2024 9:47 PM CDT) LACTIC ACID VENOUS 1.1 0.4 - 2.0 MMOL/L 07/31/2024 10:20 PM CDT [facility] 07/31/2024 9:47 PM CDT us Sidney Egan MD LABORATORY Final Resul t Performing Organization Address City/[facility]/ZIP Co de Phone Number [facility] [address] [place] [address], [place] [phone] * Qualitative HCG (07/31/2024 9:45 PM CDT) PREG SCREEN-SERUM NEGATIVE NEGATIVE 07/31/2024 10:15 PM CDT [facility] 07/31/2024 9:45 PM CDT us Sidney Egan MD LABORATORY Final Resul t Performing Organization Address [facility] Co de Phone Number [facility] [address] [place] [address], [place] [phone] * MAGNESIUM (07/31/2024 9:45 PM CDT) MAGNESIUM 1.9 1.8 - 2.4 MG/DL 07/31/2024 10:17 PM CDT [facility] 07/31/2024 9:45 PM CDT us Sidney Egan MD LABORATORY Final Resul t Performing Organization Address [facility] Co de Phone Number [facility] [address] [place] [address], [place] [phone] * (ABNORMAL) LIPASE (07/31/2024 9:45 PM CDT) LIPASE 12(L) 16 - 77 UNITS/L 07/31/2024 10:17 PM CDT [facility] 07/31/2024 9:45 PM CDT us Sidney Egan MD LABORATORY Final Resul t Performing Organization Address [facility] Co de Phone Number [facility] [address] [place] [address], [place] [phone] * CK (CPK) (07/31/2024 9:45 PM CDT) CPK 50 26 - 192 U/L 07/31/2024 10:17 PM CDT [facility] 07/31/2024 9:45 PM CDT us Sidney Egan MD LABORATORY Final Resul t Performing Organization Address [facility] de Phone Number [facility] [address] [place] [address], [place] [phone] * (ABNORMAL) COMPREHENSIVE METABOLIC PANEL (07/31/2024 9:45 PM CDT) GLUCOSE 121(H) 70 - 99 MG/DL 07/31/2024 10:17 PM CDT [facility] BUN 7 7 - 18 MG/DL 07/31/2024 10:17 PM CDT [facility] CREATININE S/P/B 0.71 0.55 - 1.02 MG/DL 07/31/2024 10:17 PM CDT [facility] SODIUM S/P/B 135(L) 136 - 145 MMOL/L 07/31/2024 10:17 PM CDT [facility] POTASSIUM S/P/B 3.9 3.5 - 5.1 MMOL/L 07/31/2024 10:17 PM [facility] CHLORIDE S/P/B 99(L) 100 - 108 MMOL/L 07/31/2024 10:17 PM [facility] CO2 23.3 21 - 32 MMOL/L 07/31/2024 10:17 PM [facility] CALCIUM S/P/B 9.6 8.5 - 10.1 MG/DL 07/31/2024 10:17 PM [facility] BILIRUBIN TOTAL S/P/B 0.5 0.2 - 1.2 MG/DL 07/31/2024 10:17 PM [facility] TOTAL PROTEIN S/P/B 8.0 6.4 - 8.2 G/DL 07/31/2024 10:17 PM [facility] ALBUMIN S/P/B 3.9 3.4 - 5.0 G/DL 07/31/2024 10:17 PM [facility] AST 19 15 - 37 U/L 07/31/2024 10:17 PM [facility] ALT 32 14 - 55 U/L 07/31/2024 10:17 PM [facility] ALKALINE PHOSPHATASE S/P/B 78 50 - 136 U/L 07/31/2024 10:17 PM [facility] ANION GAP 12.7 5 - 15 MMOL/L 07/31/2024 10:17 PM [facility] BUN CREATININE RATIO 9.9 6 - 26 07/31/2024 10:17 PM [facility] A/G RATIO 1.0 1.0 - 2.0 RATIO 07/31/2024 10:17 PM [facility] GFR ESTIMATE >90 >90 ML/MIN/1.7 3 M2 07/31/2024 10:17 PM CDT [facility] Comment: NOTE: eGFR is not calculated for patients <18 years of age. This is an estimated GFR calculation using the new CKD EPI creatinine equation without race and so does not require a correction factor for race. This estimated GFR should not be used for calculating drug doses. 07/31/2024 9:45 PM CDT us Sidney Egan MD LABORATORY Final Resul t [facility] [address] [place] [address], * (ABNORMAL) CBC W/DIFF AUTOMATED (07/31/2024 9:45 PM CDT) WBC 10.72 4.4 - 11.0 x10'3/uL 07/31/2024 10:12 PM CDT [facility] RBC 4.00(L) 4.50 - 5.10 x10'6/uL 07/31/2024 10:12 PM CDT [facility] HGB 8.2(L) 12.3 - 15.3 G/DL 07/31/2024 10:12 PM CDT [facility] HCT 27.4(L) 35.9 - 44.6 % 07/31/2024 10:12 PM CDT [facility] MCV 68.5(L) 80.0 - 96.0 FL 07/31/2024 10:12 PM CDT [facility] MCH 20.5(L) 25.3 - 30.9 PG 07/31/2024 10:12 PM CDT [facility] MCHC 29.9(L) 31.0 - 34.1 G/DL 07/31/2024 10:12 PM [facility] RDW 18.3(H) 12.4 - 15.1 % 07/31/2024 10:12 PM [facility] PLT 365(H) 151 - 353 x10'3/uL 07/31/2024 10:12 PM [facility] MPV 10.0 9.6 - 12.0 FL 07/31/2024 10:12 PM [facility] RBC MORPHOLOGY NORMAL 07/31/2024 10:12 PM [facility] PLT MORPH. NORMAL 07/31/2024 10:12 PM [facility] WBC MORPHOLOGY NORMAL 07/31/2024 10:12 PM [facility] LYMPHOCYTES % 5.5(L) 15.8 - 45.0 % 07/31/2024 10:12 PM [facility] NEUTROPHILS % 92.5(H) 42.1 - 71.9 % 07/31/2024 10:12 PM [facility] MONOCYTES % 1.3(L) 5.7 - 12.5 % 07/31/2024 10:12 PM [facility] EOSINOPHILS 0.0 0.0 - 5.6 % 07/31/2024 10:12 PM [facility] BASOPHILS 0.1 0.0 - 1.3 % 07/31/2024 10:12 PM [facility] ABS. NEUTROPHILS 9.92(H) 1.40 - 6.00 x10'3/uL 07/31/2024 10:12 PM [facility] IMMATURE GRANS % 0.6(H) 0.0 - 0.5 % 07/31/2024 10:12 PM [facility] ABS. LYMPHOCYTES 0.59(L) 0.80 - 4.70 x10'3/uL 07/31/2024 10:12 PM CDT [facility] 07/31/2024 9:45 PM CDT us Sidney Egan MD LABORATORY Final Resul t [facility] [address] [place] [address], documented in this encounter Visit Diagnoses Not on filedocumented in this encounter Administered Medications Inactive Administered Medications - up to 3 most recent administrations Medication Order MAR Action Action Date Dose Rate Site ondansetron (ZOFRAN) injection 4 mg 4 mg, Intravenous, Once, 1 dose, On Wed07/31/24 at 2145, IV push over 2-5 minutes. Given 07/31/2024 9:43 PM CDT 4 mg sodium chloride 0.9% bolus infusion 1,000 mL 1,000 mL, Intravenous, Administer over 60 Minutes, Once, 1 dose, On Wed07/31/24 at 2145 New Bag 07/31/2024 9:44 PM CDT 1,000 mLs 1000 mL/hr documented in this encounter Active and Recently Administered Medications Times are shown in CDT. Scheduled Medication Order 07/29/2024 07/30/2024 07/31/2024 ondansetron (ZOFRAN) injection 4 mg (COMPLETED) 4 mg, Intravenous, Once, 1 dose, On Wed07/31/24 at 2145, IV push over 2-5 minutes. 2142 (Given - Provid er: Maisha Briceno RN) sodium chloride 0.9% bolus infusion 1,000 mL 1,000 mL, Intravenous, Administer over 60 Minutes, Once, 1 dose, On Wed07/31/24 at 2145 214 (New Bag - Prov ider: Maisha Briceno RN)4 (Due: Infusion Stop Time - Provider: Maisha Briceno RN) documented in this encounter Additional Health Concerns Infection Onset Date Last Indicated Resolved Time Respiratory Rule-Out 07/31/2024 07/31/2024 05/05/2 025 10:26 PM CDT COVID-19 Rule Out 07/31/2024 07/31/2024 07/31/2024 10:17 PM CDT documented as of this encounter Care Teams Utility Maintenance Worker Relationship Specialty Start Date End Date Hunter Whelan MD [address] [address] PCP - General FAMILY PRACTICE 07/07/21 documented as of this encounter
--- OUTSIDE RECORDS SUMMARY | 2024-07-31 22:33 | XMS_ITS | Encounter Summary ---
Author Organization [facility] Address [facility] [place] [address] Care Team Providers Care Service Station Console Operator Name Role Phone Hunter Whelan MD Primary Care Provider [phone] Encounter Details Date Type Department Care Team (Latest Contact Info) Description 07/31/2024 Travel Social History Tobacco Use Types Packs/Day Years [...] on file documented as of this encounter Functional Status * Calculated C-SSRS Risk Score (Lifetime/Recent) Answer Date of Assessment Author Status No Risk Indicated 07/31/2024 9:31 PM SHONNAT Maisha Briceno RN Active * [place] Suicide Severity Rating Scale (Screener/Recent Self-Report) Question Answer Date of Assessment Author Status 1. Wish to be (Past 1 Month) No 07/31/2024 9:31 PM SHONNAT Maisha Briceno RN Active 2. Non-Specific Active Suicidal Thoughts (Past 1 Month) No 07/31/2024 9:31 PM Maisha Mason RN Active 6. Suicidal Behavior (Lifetime) No 07/31/2024 9:31 PM Maisha Mason RN Active documented as of this encounter Plan of Treatment Not on file documented as of this encounter Visit Diagnoses Not on filedocumented in this encounter Additional Health Concerns Infection Onset Date Last Indicated Resolved Time Respiratory Rule-Out 07/31/2024 07/31/2024 025 10:26 PM CDT COVID-19 Rule Out 07/31/2024 07/31/2024 07/31/2024 10:17 PM CDT documented as of this encounter Care Teams Service Station Console Operator Relationship Specialty Start Date End Date Hunter Whelan MD [address] [place] [address] PCP - General FAMILY PRACTICE 07/07/21 documented as of this encounter
--- OUTSIDE RECORDS SUMMARY | 2024-07-31 22:33 | XMS_ITS | Clinical Summary ---
Author Organization [facility] Address [facility] [place] [address] Care Team Providers Care Abstractor Name Role Phone Hunter Whelan MD Primary Care Provider [phone] Allergies Active Allergy Reactions Criticality Noted Date [...] needed for Nausea. 12 tablet 4 Active Encounters Date Type Department Care Team Description 07/31/2024 9:21 PM CDT - Present Emergency [facility] Emergency Room [address] [place] [address] Sidney Egan MD Abdominal Pain; Vomiting; Flu Like Symptoms 07/31/2024 Travel from Last 3 Months Social History Tobacco Use Types Packs/Day Years [...] Mass Index 23.17 07/31/2024 9:28 PM CDT Plan of Treatment Health Maintenance [...] patient's age to complete this topic Procedures * The patient is currently admitted. The information in this section might not be complete until the patient is discharged. Procedure Name Priority Date/Time Associated Diagnosis Comments URINALYSIS, AUTO, COMPLETE STAT 07/31/2024 9:59 PM CDT ECG 12-LEAD Routine 07/31/2024 9:58 PM CDT Procedure Note - 07/31/2024 9:58 PM CDTThis note is in progress. 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1995 Requested By: SIDNEY EGAN Order Number: [id number] Reading MD: Measurements Intervals [place] Rate: 75 P: 56 MO: 161 QRS: 78 QRSD: 89 T: 54 QT: 364 QTc: 409 Interpretive Statements SINUS RHYTHM WITH OCCASIONAL SUPRAVENTRICULAR PREMATURE COMPLEXES Compared to ECG 12/09/2023 21:19:22 Sinus tachycardia no longer present RESP SYNCYTIAL VIRUS STAT 07/31/2024 9:48 PM CDT CORONAVIRUS (COVID 19) STAT 07/31/2024 9:48 PM CDT INFLUENZA A & B STAT 07/31/2024 9:48 PM CDT LACTIC ACID W REFLEX (SEPSIS) STAT 07/31/2024 9:47 PM CDT CHORIONIC GONADOTROPIN HCG QL STAT 07/31/2024 9:45 PM CDT MAGNESIUM STAT 07/31/2024 9:45 PM CDT LIPASE STAT 07/31/2024 9:45 PM CDT CK (CPK) STAT 07/31/2024 9:45 PM CDT COMPREHENSIVE METABOLIC PANEL STAT 07/31/2024 9:45 PM CDT CBC W/DIFF AUTOMATED STAT 07/31/2024 9:45 PM CDT from Last 3 Months Results * (ABNORMAL) URINALYSIS, AUTO, COMPLETE (07/31/2024 9:59 PM CDT) COLOR (U) YELLOW 07/31/2024 10:18 PM CDT [facility] ([facility] TRANSPARENCY CLEAR 07/31/2024 10:18 PM CDT [facility] SPECIFIC GRAVITY (U) >1.030(H) 1.000 - 1.030 07/31/2024 10:18 PM CDT [facility] U PH 6.0 5.0 - 9.0 07/31/2024 10:18 PM CDT [facility] LEUKOCYTES (U) NEGATIVE NEGATIVE 07/31/2024 10:18 PM CDT [facility] NITRITES NEGATIVE NEGATIVE 07/31/2024 10:18 PM CDT [facility] PROTEIN RANDOM (U) NEGATIVE NEGATIVE 07/31/2024 10:18 PM T [facility] GLUCOSE (U) NEGATIVE NEGATIVE 07/31/2024 10:18 PM T [facility] KETONES MG/DL (U) 3+(A) NEGATIVE 07/31/2024 10:18 PM T [facility] BILIRUBIN (U) NEGATIVE NEGATIVE 07/31/2024 10:18 PM T [facility] BLOOD (U) NEGATIVE NEGATIVE 07/31/2024 10:18 PM [facility] WBC/HPF NONE SEEN 0 - 5 /HPF 07/31/2024 10:18 PM T [facility] RBC/HPF NONE SEEN 0 - 5 /HPF 07/31/2024 10:18 PM T [facility] EPI/HPF RARE /HPF 07/31/2024 10:18 PM T [facility] URINE SPECIMEN OBTAINED BY CLEAN CATCH PROCEDURE / Unknown 07/31/2024 9:59 PM CDT us Sidney Egan MD URINE ORDERABLES Final Resu lt [facility] [address] [place] [address], [place] [phone] * CORONAVIRUS (COVID-19) MOLECULAR (07/31/2024 9:48 PM CDT) CORONAVIRUS SARS COV 2 RNA NEGATIVE NEGATIVE 07/31/2024 10:17 PM CDT [facility] Comment: NEGATIVE RESULTS DO NOT RULE [...] SPECIMEN TYPE NASAL 07/31/2024 9:48 PM CDT [facility] NASOPHARYNGEAL SWAB / Unknown 07/31/2024 9:48 PM CDT us Sidney Egan MD MICROBIOLOGY - GENERAL ALL [place] Final Result [facility] [address] [place] [address], [place] [phone] * INFLUENZA A & B (07/31/2024 9:48 PM CDT) SPECIMEN TYPE NASOPHARYNGEAL SWAB 07/31/2024 9:58 PM CDT [facility] INFLUENZA A NEGATIVE NEGATIVE 07/31/2024 10:26 PM CDT [facility] INFLUENZA B NEGATIVE NEGATIVE 07/31/2024 10:26 PM CDT [facility] NASAL STRUCTURE / Unknown 07/31/2024 9:48 PM CDT us Sidney Egan MD MICROBIOLOGY - GENERAL ALL [place] Final Result Performing Organization Address [facility] Co de Phone Number [facility] [address] [place] [address], [place] [phone] * RESP SYNCYTIAL VIRUS (07/31/2024 9:48 PM CDT) SPECIMEN TYPE NASOPHARYNGEAL SWAB 07/31/2024 9:48 PM CDT [facility] RAPID RSV NEGATIVE NEGATIVE 07/31/2024 10:26 PM CDT [facility] NASOPHARYNGEAL SWAB / Unknown 07/31/2024 9:48 PM CDT us Sidney Egan MD MICROBIOLOGY - [facility] ALL [place] Final Result Performing Organization Address [facility] Co de Phone Number [facility] [address] [place] [address], [place] [phone] * LACTIC ACID W REFLEX (SEPSIS) (07/31/2024 9:47 PM CDT) LACTIC ACID VENOUS 1.1 0.4 - 2.0 MMOL/L 07/31/2024 10:20 PM CDT [facility] 07/31/2024 9:47 PM CDT us Sidney Egan MD LABORATORY Final Resul t Performing Organization Address [facility] Co de Phone Number [facility] [address] [place] [address], [place] [phone] * (ABNORMAL) COMPREHENSIVE METABOLIC PANEL (07/31/2024 9:45 PM CDT) GLUCOSE 121(H) 70 - 99 MG/DL 07/31/2024 10:17 PM CDT [facility] BUN 7 7 - 18 MG/DL 07/31/2024 10:17 PM [facility] CREATININE S/P/B 0.71 0.55 - 1.02 MG/DL 07/31/2024 10:17 PM [facility] SODIUM S/P/B 135(L) 136 - 145 MMOL/L 07/31/2024 10:17 PM [facility] POTASSIUM S/P/B 3.9 3.5 - 5.1 MMOL/L 07/31/2024 10:17 PM [facility] CHLORIDE S/P/B 99(L) 100 - 108 MMOL/L 07/31/2024 10:17 PM [facility] CO2 23.3 21 - 32 MMOL/L 07/31/2024 10:17 PM [facility] CALCIUM S/P/B 9.6 8.5 - 10.1 MG/DL 07/31/2024 10:17 PM [facility] BILIRUBIN TOTAL S/P/B 0.5 0.2 - 1.2 MG/DL 07/31/2024 10:17 PM [facility] TOTAL PROTEIN S/P/B 8.0 6.4 - 8.2 G/DL 07/31/2024 10:17 PM [facility] ALBUMIN S/P/B 3.9 3.4 - 5.0 G/DL 07/31/2024 10:17 PM [facility] AST 19 15 - 37 U/L 07/31/2024 10:17 PM [facility] ALT 32 14 - 55 U/L 07/31/2024 10:17 PM [facility] ALKALINE PHOSPHATASE S/P/B 78 50 - 136 U/L 07/31/2024 10:17 PM [facility] ANION GAP 12.7 5 - 15 MMOL/L 07/31/2024 10:17 PM CDT [facility] BUN CREATININE RATIO 9.9 6 - 26 07/31/2024 10:17 PM CDT [facility] A/G RATIO 1.0 1.0 - 2.0 RATIO 07/31/2024 10:17 PM CDT [facility] GFR ESTIMATE >90 >90 ML/MIN/1.7 3 M2 07/31/2024 10:17 PM CDT [facility] Comment: NOTE: eGFR is not calculated for patients <18 years of age. This is an estimated GFR calculation using the new CKD EPI creatinine equation without race and so does not require a correction factor for race. This estimated GFR should not be used for calculating drug doses. 07/31/2024 9:45 PM CDT us Sidney Egan MD LABORATORY Final Resul t [facility] [address] [place] [address], [place] [phone] * Qualitative HCG (07/31/2024 9:45 PM CDT) Pathologist [facility] PREG SCREEN-SERUM NEGATIVE NEGATIVE 07/31/2024 10:15 PM CDT [facility] 07/31/2024 9:45 PM CDT us Sidney Egan MD LABORATORY Final Resul t [facility] [address] [place] [address], [place] [phone] * (ABNORMAL) CBC W/DIFF AUTOMATED (07/31/2024 9:45 PM CDT) WBC 10.72 4.4 - 11.0 x10'3/uL 07/31/2024 10:12 PM [facility] RBC 4.00(L) 4.50 - 5.10 x10'6/uL 07/31/2024 10:12 PM [facility] HGB 8.2(L) 12.3 - 15.3 G/DL 07/31/2024 10:12 PM [facility] HCT 27.4(L) 35.9 - 44.6 % 07/31/2024 10:12 PM [facility] MCV 68.5(L) 80.0 - 96.0 FL 07/31/2024 10:12 PM [facility] MCH 20.5(L) 25.3 - 30.9 PG 07/31/2024 10:12 PM [facility] MCHC 29.9(L) 31.0 - 34.1 G/DL 07/31/2024 10:12 PM [facility] RDW 18.3(H) 12.4 - 15.1 % 07/31/2024 10:12 PM [facility] PLT 365(H) 151 - 353 x10'3/uL 07/31/2024 10:12 PM [facility] MPV 10.0 9.6 - 12.0 FL 07/31/2024 10:12 PM [facility] RBC MORPHOLOGY NORMAL 07/31/2024 10:12 PM [facility] PLT MORPH. NORMAL 07/31/2024 10:12 PM [facility] WBC MORPHOLOGY NORMAL 07/31/2024 10:12 PM [facility] LYMPHOCYTES % 5.5(L) 15.8 - 45.0 % 07/31/2024 10:12 PM [facility] NEUTROPHILS % 92.5(H) 42.1 - 71.9 % 07/31/2024 10:12 PM CDT [facility] MONOCYTES % 1.3(L) 5.7 - 12.5 % 07/31/2024 10:12 PM CDT [facility] EOSINOPHILS 0.0 0.0 - 5.6 % 07/31/2024 10:12 PM CDT [facility] BASOPHILS 0.1 0.0 - 1.3 % 07/31/2024 10:12 PM CDT [facility] ABS. NEUTROPHILS 9.92(H) 1.40 - 6.00 x10'3/uL 07/31/2024 10:12 PM CDT [facility] IMMATURE GRANS % 0.6(H) 0.0 - 0.5 % 07/31/2024 10:12 PM CDT [facility] ABS. LYMPHOCYTES 0.59(L) 0.80 - 4.70 x10'3/uL 07/31/2024 10:12 PM CDT [facility] 07/31/2024 9:45 PM CDT us Sidney Egan MD LABORATORY Final Resul t Performing Organization Address City/State/[facility] Co de Phone Number [facility] [address] [place] [address], * MAGNESIUM (07/31/2024 9:45 PM CDT) MAGNESIUM 1.9 1.8 - 2.4 MG/DL 07/31/2024 10:17 PM CDT [facility] 07/31/2024 9:45 PM CDT us Sidney Egan MD LABORATORY Final Resul t Performing Organization Address City/[facility]/ZIP Co de Phone Number [facility] [address] [place] [address], [place] [phone] * (ABNORMAL) LIPASE (07/31/2024 9:45 PM CDT) LIPASE 12(L) 16 - 77 UNITS/L 07/31/2024 10:17 PM CDT [facility] 07/31/2024 9:45 PM CDT us Sidney Egan MD LABORATORY Final Resul t Performing Organization Address [facility]/ZIP Co de Phone Number [facility] [address] [place] [address], [place] [phone] * CK (CPK) (07/31/2024 9:45 PM CDT) CPK 50 26 - 192 U/L 07/31/2024 10:17 PM CDT [facility] 07/31/2024 9:45 PM CDT us Sidney Egan MD LABORATORY Final Resul t Performing Organization Address City/[facility]/ZIP Co de Phone Number [facility] [address] [place] [address], [place] [phone] from Last 3 Months Insurance Care Teams Abstractor Relationship Specialty Start Date End Date Hunter Whelan MD [address] [place] [address] PCP - General FAMILY PRACTICE 07/07/21
== END 2024-07-31 21:44 | disposition left against medical advice (07) ==
PROVIDERS: PCP Family Medicine
DX: R11.2 Nausea with vomiting, unspecified (principal)
CPT/HCPCS: 99199